=== PATIENT | female | born 1975 | race Caucasian/White ===

== ENCOUNTER → 2016-07-31 | Outpatient (REF) | payer BC ==
[~2016-07-31] MED LIST: /AUGM875TA; IBUP600T; LORTAB; SPIRONOLACTONE-HCTZ; VARE1TA
[2016-07-31 19:21] LABS: ALBUMIN 3.6 GM/DL (3.2-5.2); ALBUMIN/GLOBULIN RATIO 1.09 (1.00-1.93); ALKALINE PHOSPHATASE 85 U/L (45-117); ALT/SGPT 28 U/L (12-78); ANION GAP 11 MEQ/L (8-16); AST/SGOT 12 U/L (15-37); BILIRUBIN,TOTAL 0.2 MG/DL (0.2-1.0); BLOOD UREA NITROGEN 18 MG/DL (7-18); CALCIUM LEVEL 8.5 MG/DL (8.5-10.1); CARBON DIOXIDE LEVEL 24 MEQ/L (21-32); CHLORIDE LEVEL 105 MEQ/L (98-107); CREATININE FOR GFR 0.83 MG/DL (0.55-1.02); FREE T4 1.11 NG/DL (0.76-1.46); GLOMERULAR FILTRATION RATE > 60.0 (>58); GLUCOSE, FASTING 160 MG/DL (70-105); MAGNESIUM LEVEL 1.7 MG/DL (1.8-2.4); POTASSIUM SERUM 3.5 MEQ/L (3.5-5.1); SODIUM LEVEL 140 MEQ/L (136-145); TOTAL PROTEIN 6.9 GM/DL (6.4-8.2)
== END ==
LOC: M LABDRAW1 17:04
PROVIDERS: ATTEND Family Medicine
DX: E04.0 Nontoxic diffuse goiter (principal); R79.9 Abnormal finding of blood chemistry, unspecified; Z79.899 Other long term (current) drug therapy

== ENCOUNTER 2016-08-29 15:40 | Emergency (ER) | payer BC ==
[2016-08-29] MEDS ORDERED: METOCLOPRAMIDE INJ 10MG/2ML VIAL (J2765) As Ordered ONE (17:31)
[2016-08-29] MEDS ORDERED: diphenhydrAMINE INJ 50MG/ML VIAL (J1200) As Ordered ONE (17:31)
[2016-08-29] MEDS ORDERED: KETOROLAC 30 MG/ML VIAL (J1885) As Ordered ONE (17:32)
--- NOTE | 2016-08-29 19:12 | EDDOCDS ---
Nurse's Notes [facility] Name: Treva Hunter Age: 41 yrs Sex: Female : 1975 Arrival Date: 08/29/2016 Time: 15:40 Bed I4 / M4 Private MD: Curtis Hummel Diagnosis: Migraine Presentation: 08/29 15:55 Presenting complaint: Patient states: worst migraine of my life. Started this morning hs1 and gradually getting worse. This patient has no additional risk factors. Adult Sepsis Screening: The patient does not have new or worsening altered mentation. Patient's respiratory rate is less than 22. Systolic blood pressure is greater than 100. Patient has a qSOFA score of 0- Negative Sepsis Screen. Suicide/Homicide risk assessment- the patient denies having any suicidal and/or homicidal ideations and does not present with any other emotional, behavioral or mental health complaints. Status: Patient is not a hotel service manager or dependent. Transition of care: patient was not received from another setting of care. 15:55 Acuity: REMI Level 3 hs1 15:55 Method Of Arrival: Walkin/Carried/Asstd hs1 Triage Assessment: 15:59 Headache History: This headache is more severe than any previous headaches the patient hs1 has experienced. General: Appears uncomfortable, Behavior is appropriate for age, cooperative. Pain: Pain currently is 10 out of 10 on a pain scale. Pain began gradually Also complains of nausea, photophobia, shortness of breath. HIV screening NA for this visit Offered previously. Neurological: Level of Consciousness is awake, alert, obeys commands. Respiratory: No deficits noted. Derm: No deficits noted. Historical: - Allergies: Egg yolk; Latex; - Home Meds: 1. spironolacton-hydrochlorothiaz 25-25 mg Oral tab 1 tab once daily (Last dose: 08/28/2016) 2. torsemide 10 mg oral tab 1 tab twice a day (Last dose: 08/28/2016) 3. Contrave 8-90 mg oral TbER 2 tabs 2 times per day 4. Magnesium Oxide Oral 5. potassium chloride 10 mEq oral TbER 1 tab 3 times per day 6. Xanax 0.25 mg Oral tab 2 tabs as needed (Last dose: 08/29/2016 11:30) - PMHx: Polycystic Ovary Disease; low k; Migraines; - PSHx: Cholecystectomy; ; - Social history: Smoking status: Patient states former smoker of tobacco. No barriers to communication noted, The patient speaks fluent Nigerian, Speaks appropriately for age. - Family history: Not pertinent. - : The pt / caregiver states he / she is not on anticoagulants. Home medication list is obtained from the patient. - Exposure Risk Screening:: None identified. Screenin:29 Screening information is obtained from the patient. Fall risk: No risks identified. ck1 Assistance ADL's: requires no assistance with activities of daily living. Abuse/DV Screen: The patient / caregiver reports he/she is: not in a situation that causes fear, pain or injury. Nutritional screening: No deficits noted. Advance Directives: Currently, there is no health care proxy. home support is adequate. Assessment: 17:30 General: Appears uncomfortable, Behavior is appropriate for age, cooperative. Pain: ck1 Location: head Pain currently is 10 out of 10 on a pain scale. Neurological: Level of Consciousness is awake, alert, obeys commands, Oriented to person, place, time, Reports headache photophobia. Respiratory: Respiratory effort is unlabored, Respiratory pattern is regular, symmetrical. GI: Reports nausea. Derm: Skin is pink, warm & dry. 18:27 General: Appears in no apparent distress, comfortable, Behavior is appropriate for age, ck1 cooperative. Pain: Location: head Pain currently is 6 out of 10 on a pain scale. Neurological: Level of Consciousness is lethargic, Oriented to person, place, time. Respiratory: Respiratory effort is unlabored, Respiratory pattern is regular, symmetrical. GI: Denies nausea, vomiting. Derm: Skin is pink, warm & dry. 19:09 General: Appears in no apparent distress, comfortable, Behavior is cooperative. Pain: mlc Denies pain. Neurological: Level of Consciousness is awake, alert, Oriented to person, place, time. Respiratory: Airway is patent Respiratory effort is even, unlabored, Respiratory pattern is regular. Derm: Skin is pink, warm & dry. Vital Signs: 15:42 BP 165 / 99; Pulse 89; Resp 20 S; Temp 97.0(O); Pulse Ox 100% on R/A; Weight 115.67 kg gr2 (R); Height 5 ft. 11 in. (180.34 cm) (R); Pain 9/10; 17:02 BP 185 / 90 RA Standing (auto/lg); dem1 19:09 BP 139 / 70; Pulse 70; Resp 16; Temp 97.6; Pulse Ox 97% on R/A; Pain 0/10; mlc 15:42 Body Mass Index 35.56 (115.67 kg, 180.34 cm) gr2 Vitals: 15:42 Log In Time: August 29, 2016 at 15:42. gr2 ED Course: 15:42 Patient visited by Sylvia Burrell. gr2 15:42 Curtis Hummel is Private Physician. gr2 15:42 Patient moved to Waiting gr2 15:44 Patient visited by Sylvia Burrell. gr2 15:44 Patient moved to Pre RCE gr2 15:55 Triage Initiated hs1 17:00 Patient visited by Genoveva Self RN. mk4 17:00 Patient moved to Triage 1 mk4 17:02 Patient visited by Rufina Pate. dem1 17:19 [facility] ke 17:20 Patient visited by Kignston Mandel FNP. ke 17:20 Patient visited by Kingston Mandel FNP. ke 17:24 Patient moved to I4 / M4 dem1 17:29 The patient / caregiver is instructed regarding the plan of care and ED course. ck1 17:29 Inserted saline lock: 20 gauge in right antecubital area and blood collected. The ck1 patient tolerated the procedure well. 17:52 Patient visited by Laura Ruiz RN. ck1 18:08 Pt greeted and oriented to ED. Patient advised of names of staff involved in care, jam1 location of call knapp, wait times and NPO status. Patient has correct armband on for positive identification. Placed in gown. Bed in low position. Call light in reach. Side rails up X 1. Door closed. 18:27 Patient visited by Laura Ruiz,RUPA. ck1 18:28 No procedures done that require assistance. ck1 18:57 Patient visited by Laura Ruiz,RUPA. ck1 19:00 Curtis Hummel is Referral Physician. ke 19:00 Toni Nguyen is Referral Physician. ke 19:02 [facility] Payment Agreement was scanned into [employer] and attached to record. zo 19:09 Discontinued IV lock intact, bleeding controlled, pressure dressing applied, No mlc redness/swelling at site. Administered Medications: 17:39 Drug: NS 0.9% 1000 ml [sodium chloride 0.9 % intravenous solution] Route: IV; Rate: ck1 bolus; Site: right antecubital; 17:39 Drug: ketorolac 30 mg [ketorolac 30 mg/mL (1 mL) injection solution (1 mL)] Route: IVP; ck1 Site: right antecubital; 17:39 Drug: diphenhydrAMINE 50 mg [diphenhydramine 50 mg/mL injection solution (1 mL)] Route: ck1 IVP; Site: right antecubital; 17:39 Drug: Metoclopramide 10 mg [metoclopramide 5 mg/mL injection solution] Route: IV; Rate: ck1 40 mg/hr; Infused Over: 15 mins; Site: right antecubital; Order Results: There are currently no results for this order. Outcome: 19:00 Discharge ordered by Provider. ke 19:09 Discharge Assessment: Patient awake, alert and oriented x 3. No cognitive and/or mlc functional deficits noted. Patient verbalized understanding of disposition instructions. patient administered narcotics - no. The following High Risk Discharge criteria are identified: None. Discharged to home ambulatory. Condition: good Condition: stable. Discharge instructions given to patient, Instructed on discharge instructions, follow up and referral plans. medication usage, Demonstrated understanding of instructions, medications, Pt was receptive of discharge instructions/ teaching. Prescriptions given X 1. No special radiology studies were completed. Property sent home with patient. 19:11 Patient left the ED. mlc Signatures: Salina Rodriguez, BRAND AMBASSADOR BRAND AMBASSADOR jam1 Kingston Mandel, IT INVESTMENT/PORTFOLIO MANAGER IT INVESTMENT/PORTFOLIO MANAGER Laura JonesRN RN ck1 Valencia Wang Hannah RN RN hs1 Rufina Pate1 Sylvia Burrell gr2 Genoveva Self RN RN mk4 Izabel Tanner,RN RN mlc MTDD
--- NOTE | 2016-08-29 19:12 | EDDOCDS ---
Physician Documentation [facility] Name: Treva Hunter Age: 41 yrs Sex: Female : 1975 Arrival Date: 08/29/2016 Time: 15:40 Bed I4 / M4 Private MD: Curtis Hummel Disposition: 08/29/16 19:00 Discharged to Home/Self Care. Impression: Migraine. - Condition is Stable. - Discharge Instructions: Migraine Headache. - Prescriptions for Reglan 10 mg Oral Tablet - take 1 tablet by ORAL route every 6 hours take 30 minutes before meals and at bedtime; 20 tablet. - Medication Reconciliation, Local Pharmacy Hours form. - Follow up: Curtis Hummel; When: 4 - 5 days; Reason: Recheck today's complaints, Continuance of care. Follow up: Toni Nguyen; When: Call to arrange an appointment; Reason: Continuance of care. - Problem is an acute exacerbation. - Symptoms are unchanged. Historical: - Allergies: Egg yolk; Latex; - Home Meds: 1. spironolacton-hydrochlorothiaz 25-25 mg Oral tab 1 tab once daily (Last dose: 08/28/2016) 2. torsemide 10 mg oral tab 1 tab twice a day (Last dose: 08/28/2016) 3. Contrave 8-90 mg oral TbER 2 tabs 2 times per day 4. Magnesium Oxide Oral 5. potassium chloride 10 mEq oral TbER 1 tab 3 times per day 6. Xanax 0.25 mg Oral tab 2 tabs as needed (Last dose: 08/29/2016 11:30) - PMHx: Polycystic Ovary Disease; low k; Migraines; - PSHx: Cholecystectomy; ; - Social history: Smoking status: Patient states former smoker of tobacco. No barriers to communication noted, The patient speaks fluent Greenlandic, Speaks appropriately for age. - Family history: Not pertinent. - : The pt / caregiver states he / she is not on anticoagulants. Home medication list is obtained from the patient. - Exposure Risk Screening:: None identified. Vital Signs: 08/29 15:42 BP 165 / 99; Pulse 89; Resp 20 S; Temp 97.0(O); Pulse Ox 100% on R/A; Weight 115.67 kg gr2 / 255.01 lbs (R); Height 5 ft. 11 in. (180.34 cm) (R); Pain 9/10; 17:02 BP 185 / 90 RA Standing (auto/lg); dem1 19:09 BP 139 / 70; Pulse 70; Resp 16; Temp 97.6; Pulse Ox 97% on R/A; Pain 0/10; mlc 15:42 Body Mass Index 35.56 (115.67 kg, 180.34 cm) gr2 MDM: 17:23 IV Saline Lock ordered. ke 17:23 NS 0.9% 1000 ml IV at bolus once ordered. ke 17:23 ketorolac 30 mg IVP once ordered. ke 17:23 diphenhydrAMINE 50 mg IVP once ordered. ke 17:23 Metoclopramide 10 mg IV at 40 mg/hr once over 15 mins ordered. ke 18:19 Financial registration complete. zo 19:02 [facility] Payment Agreement was scanned into [employer] and attached to record. zo Administered Medications: 17:39 Drug: NS 0.9% 1000 ml [sodium chloride 0.9 % intravenous solution] Route: IV; Rate: ck1 bolus; Site: right antecubital; 17:39 Drug: ketorolac 30 mg [ketorolac 30 mg/mL (1 mL) injection solution (1 mL)] Route: IVP; ck1 Site: right antecubital; 17:39 Drug: diphenhydrAMINE 50 mg [diphenhydramine 50 mg/mL injection solution (1 mL)] Route: ck1 IVP; Site: right antecubital; 17:39 Drug: Metoclopramide 10 mg [metoclopramide 5 mg/mL injection solution] Route: IV; Rate: ck1 40 mg/hr; Infused Over: 15 mins; Site: right antecubital; Signatures: Kingston Mandel, MICROSOFT ACCESS DEVELOPER MICROSOFT ACCESS DEVELOPER Laura Jones RN RN ck1 Valencia Wang Hannah, RN RN hs1 Izabel Tanner,RUPA RN mlc The chart was reviewed and I authenticate all verbal orders and agree with the evaluation and treatment provided.Attachments: 19:02 [facility] Payment Agreement zo MTDD
--- NOTE | 2016-08-31 20:12 | EDDOCDS ---
Physician Documentation [facility] Name: Treva Hunter Age: 41 yrs Sex: Female : 1975 Arrival Date: 08/29/2016 Time: 15:40 Bed I4 / M4 Private MD: Curtis Hummel Disposition: 08/29/16 19:00 Discharged to Home/Self Care. Impression: Migraine. - Condition is Stable. - Discharge Instructions: Migraine Headache. - Prescriptions for Reglan 10 mg Oral Tablet - take 1 tablet by ORAL route every 6 hours take 30 minutes before meals and at bedtime; 20 tablet. - Medication Reconciliation, Local Pharmacy Hours form. - Follow up: Curtis Hummel; When: 4 - 5 days; Reason: Recheck today's complaints, Continuance of care. Follow up: Toni Nguyen; When: Call to arrange an appointment; Reason: Continuance of care. - Problem is an acute exacerbation. - Symptoms are unchanged. Historical: - Allergies: Egg yolk; Latex; - Home Meds: 1. spironolacton-hydrochlorothiaz 25-25 mg Oral tab 1 tab once daily (Last dose: 08/28/2016) 2. torsemide 10 mg oral tab 1 tab twice a day (Last dose: 08/28/2016) 3. Contrave 8-90 mg oral TbER 2 tabs 2 times per day 4. Magnesium Oxide Oral 5. potassium chloride 10 mEq oral TbER 1 tab 3 times per day 6. Xanax 0.25 mg Oral tab 2 tabs as needed (Last dose: 08/29/2016 11:30) - PMHx: Polycystic Ovary Disease; low k; Migraines; - PSHx: Cholecystectomy; ; - Social history: Smoking status: Patient states former smoker of tobacco. No barriers to communication noted, The patient speaks fluent Lao, Speaks appropriately for age. - Family history: Not pertinent. - : The pt / caregiver states he / she is not on anticoagulants. Home medication list is obtained from the patient. - Exposure Risk Screening:: None identified. Vital Signs: 08/29 15:42 BP 165 / 99; Pulse 89; Resp 20 S; Temp 97.0(O); Pulse Ox 100% on R/A; Weight 115.67 kg gr2 / 255.01 lbs (R); Height 5 ft. 11 in. (180.34 cm) (R); Pain 9/10; 17:02 BP 185 / 90 RA Standing (auto/lg); dem1 19:09 BP 139 / 70; Pulse 70; Resp 16; Temp 97.6; Pulse Ox 97% on R/A; Pain 0/10; mlc 15:42 Body Mass Index 35.56 (115.67 kg, 180.34 cm) gr2 MDM: 17:23 IV Saline Lock ordered. ke 17:23 NS 0.9% 1000 ml IV at bolus once ordered. ke 17:23 ketorolac 30 mg IVP once ordered. ke 17:23 diphenhydrAMINE 50 mg IVP once ordered. ke 17:23 Metoclopramide 10 mg IV at 40 mg/hr once over 15 mins ordered. ke 18:19 Financial registration complete. zo 19:02 [facility] Payment Agreement was scanned into [employer] and attached to record. zo 08/30 11:30 T-Sheet-- Draft Copy was scanned into [employer] and attached to record. gb Administered Medications: 08/29 17:39 Drug: NS 0.9% 1000 ml [sodium chloride 0.9 % intravenous solution] Route: IV; Rate: ck1 bolus; Site: right antecubital; 17:39 Drug: ketorolac 30 mg [ketorolac 30 mg/mL (1 mL) injection solution (1 mL)] Route: IVP; ck1 Site: right antecubital; 17:39 Drug: diphenhydrAMINE 50 mg [diphenhydramine 50 mg/mL injection solution (1 mL)] Route: ck1 IVP; Site: right antecubital; 17:39 Drug: Metoclopramide 10 mg [metoclopramide 5 mg/mL injection solution] Route: IV; Rate: ck1 40 mg/hr; Infused Over: 15 mins; Site: right antecubital; Signatures: Shannon Stokes, Kingston Ribeiro, EDGER MACHINE SETTER EDGER MACHINE SETTER Laura JonesRN RN ck1 Valencia Wang Hannah, RN RN hs1 Izabel Tanner RN RN mlc The chart was reviewed and I authenticate all verbal orders and agree with the evaluation and treatment provided.Attachments: 19:02 [facility] Payment Agreement zo 08/30 11:30 T-Sheet-- Draft Copy gb Chart Complete MTDD
--- NOTE | 2016-08-31 20:12 | EDDOCDS ---
Physician Documentation [facility] Name: Treva Hunter Age: 41 yrs Sex: Female : 1975 Arrival Date: 08/29/2016 Time: 15:40 Bed I4 / M4 Private MD: Curtis Hummel Disposition: 08/29/16 19:00 Discharged to Home/Self Care. Impression: Migraine. - Condition is Stable. - Discharge Instructions: Migraine Headache. - Prescriptions for Reglan 10 mg Oral Tablet - take 1 tablet by ORAL route every 6 hours take 30 minutes before meals and at bedtime; 20 tablet. - Medication Reconciliation, Local Pharmacy Hours form. - Follow up: Curtis Hummel; When: 4 - 5 days; Reason: Recheck today's complaints, Continuance of care. Follow up: Toni Nguyen; When: Call to arrange an appointment; Reason: Continuance of care. - Problem is an acute exacerbation. - Symptoms are unchanged. Historical: - Allergies: Egg yolk; Latex; - Home Meds: 1. spironolacton-hydrochlorothiaz 25-25 mg Oral tab 1 tab once daily (Last dose: 08/28/2016) 2. torsemide 10 mg oral tab 1 tab twice a day (Last dose: 08/28/2016) 3. Contrave 8-90 mg oral TbER 2 tabs 2 times per day 4. Magnesium Oxide Oral 5. potassium chloride 10 mEq oral TbER 1 tab 3 times per day 6. Xanax 0.25 mg Oral tab 2 tabs as needed (Last dose: 08/29/2016 11:30) - PMHx: Polycystic Ovary Disease; low k; Migraines; - PSHx: Cholecystectomy; ; - Social history: Smoking status: Patient states former smoker of tobacco. No barriers to communication noted, The patient speaks fluent Telugu, Speaks appropriately for age. - Family history: Not pertinent. - : The pt / caregiver states he / she is not on anticoagulants. Home medication list is obtained from the patient. - Exposure Risk Screening:: None identified. Vital Signs: 08/29 15:42 BP 165 / 99; Pulse 89; Resp 20 S; Temp 97.0(O); Pulse Ox 100% on R/A; Weight 115.67 kg gr2 / 255.01 lbs (R); Height 5 ft. 11 in. (180.34 cm) (R); Pain 9/10; 17:02 BP 185 / 90 RA Standing (auto/lg); dem1 19:09 BP 139 / 70; Pulse 70; Resp 16; Temp 97.6; Pulse Ox 97% on R/A; Pain 0/10; mlc 15:42 Body Mass Index 35.56 (115.67 kg, 180.34 cm) gr2 MDM: 17:23 IV Saline Lock ordered. ke 17:23 NS 0.9% 1000 ml IV at bolus once ordered. ke 17:23 ketorolac 30 mg IVP once ordered. ke 17:23 diphenhydrAMINE 50 mg IVP once ordered. ke 17:23 Metoclopramide 10 mg IV at 40 mg/hr once over 15 mins ordered. ke 18:19 Financial registration complete. zo 19:02 [facility] Payment Agreement was scanned into [employer] and attached to record. zo 08/30 11:30 T-Sheet-- Draft Copy was scanned into [employer] and attached to record. gb Administered Medications: 08/29 17:39 Drug: NS 0.9% 1000 ml [sodium chloride 0.9 % intravenous solution] Route: IV; Rate: ck1 bolus; Site: right antecubital; 17:39 Drug: ketorolac 30 mg [ketorolac 30 mg/mL (1 mL) injection solution (1 mL)] Route: IVP; ck1 Site: right antecubital; 17:39 Drug: diphenhydrAMINE 50 mg [diphenhydramine 50 mg/mL injection solution (1 mL)] Route: ck1 IVP; Site: right antecubital; 17:39 Drug: Metoclopramide 10 mg [metoclopramide 5 mg/mL injection solution] Route: IV; Rate: ck1 40 mg/hr; Infused Over: 15 mins; Site: right antecubital; Signatures: Shannon Stokes, Kingston Ribeiro, DRY END OPERATOR DRY END OPERATOR Laura JonesRN RN ck1 Valencia Wang Hannah, RN RN hs1 Izabel Tanner RN RN mlc The chart was reviewed and I authenticate all verbal orders and agree with the evaluation and treatment provided.Attachments: 19:02 [facility] [place] Agreement zo 08/30 11:30 T-Sheet-- Draft Copy gb Chart Complete MTDD
--- NOTE | 2016-08-31 20:12 | EDDOCDS ---
Nurse's Notes [facility] Name: Treva Hunter Age: 41 yrs Sex: Female : 1975 Arrival Date: 08/29/2016 Time: 15:40 Bed I4 / M4 Private MD: Curtis Hummel Diagnosis: Migraine Presentation: 08/29 15:55 Presenting complaint: Patient states: worst migraine of my life. Started this morning hs1 and gradually getting worse. This patient has no additional risk factors. Adult Sepsis Screening: The patient does not have new or worsening altered mentation. Patient's respiratory rate is less than 22. Systolic blood pressure is greater than 100. Patient has a qSOFA score of 0- Negative Sepsis Screen. Suicide/Homicide risk assessment- the patient denies having any suicidal and/or homicidal ideations and does not present with any other emotional, behavioral or mental health complaints. 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 Transition of care: patient was not received from another setting of care. 15:55 Acuity: REMI Level 3 hs1 15:55 Method Of Arrival: Walkin/Carried/Asstd hs1 Triage Assessment: 15:59 Headache History: This headache is more severe than any previous headaches the patient hs1 has experienced. General: Appears uncomfortable, Behavior is appropriate for age, cooperative. Pain: Pain currently is 10 out of 10 on a pain scale. Pain began gradually Also complains of nausea, photophobia, shortness of breath. HIV screening NA for this visit Offered previously. Neurological: Level of Consciousness is awake, alert, obeys commands. Respiratory: No deficits noted. Derm: No deficits noted. Historical: - Allergies: Egg yolk; Latex; - Home Meds: 1. spironolacton-hydrochlorothiaz 25-25 mg Oral tab 1 tab once daily (Last dose: 08/28/2016) 2. torsemide 10 mg oral tab 1 tab twice a day (Last dose: 08/28/2016) 3. Contrave 8-90 mg oral TbER 2 tabs 2 times per day 4. Magnesium Oxide Oral 5. potassium chloride 10 mEq oral TbER 1 tab 3 times per day 6. Xanax 0.25 mg Oral tab 2 tabs as needed (Last dose: 08/29/2016 11:30) - PMHx: Polycystic Ovary Disease; low k; Migraines; - PSHx: Cholecystectomy; ; - Social history: Smoking status: Patient states former smoker of tobacco. No barriers to communication noted, The patient speaks fluent Marshallese, Speaks appropriately for age. - Family history: Not pertinent. - : The pt / caregiver states he / she is not on anticoagulants. Home medication list is obtained from the patient. - Exposure Risk Screening:: None identified. Screenin:29 Screening information is obtained from the patient. Fall risk: No risks identified. ck1 Assistance ADL's: requires no assistance with activities of daily living. Abuse/DV Screen: The patient / caregiver reports he/she is: not in a situation that causes fear, pain or injury. Nutritional screening: No deficits noted. Advance Directives: Currently, there is no health care proxy. home support is adequate. Assessment: 17:30 General: Appears uncomfortable, Behavior is appropriate for age, cooperative. Pain: ck1 Location: head Pain currently is 10 out of 10 on a pain scale. Neurological: Level of Consciousness is awake, alert, obeys commands, Oriented to person, place, time, Reports headache photophobia. Respiratory: Respiratory effort is unlabored, Respiratory pattern is regular, symmetrical. GI: Reports nausea. Derm: Skin is pink, warm & dry. 18:27 General: Appears in no apparent distress, comfortable, Behavior is appropriate for age, ck1 cooperative. Pain: Location: head Pain currently is 6 out of 10 on a pain scale. Neurological: Level of Consciousness is lethargic, Oriented to person, place, time. Respiratory: Respiratory effort is unlabored, Respiratory pattern is regular, symmetrical. GI: Denies nausea, vomiting. Derm: Skin is pink, warm & dry. 19:09 General: Appears in no apparent distress, comfortable, Behavior is cooperative. Pain: mlc Denies pain. Neurological: Level of Consciousness is awake, alert, Oriented to person, place, time. Respiratory: Airway is patent Respiratory effort is even, unlabored, Respiratory pattern is regular. Derm: Skin is pink, warm & dry. Vital Signs: 15:42 BP 165 / 99; Pulse 89; Resp 20 S; Temp 97.0(O); Pulse Ox 100% on R/A; Weight 115.67 kg gr2 (R); Height 5 ft. 11 in. (180.34 cm) (R); Pain 9/10; 17:02 BP 185 / 90 RA Standing (auto/lg); dem1 19:09 BP 139 / 70; Pulse 70; Resp 16; Temp 97.6; Pulse Ox 97% on R/A; Pain 0/10; mlc 15:42 Body Mass Index 35.56 (115.67 kg, 180.34 cm) gr2 Vitals: 15:42 Log In Time: August 29, 2016 at 15:42. gr2 ED Course: 15:42 Patient visited by Sylvia Burrell. gr2 15:42 Curtis Hummel is Private Physician. gr2 15:42 Patient moved to Waiting gr2 15:44 Patient visited by Sylvia Burrell. gr2 15:44 Patient moved to Pre RCE gr2 15:55 Triage Initiated hs1 17:00 Patient visited by Genoveva Self RN. mk4 17:00 Patient moved to Triage 1 mk4 17:02 Patient visited by Rufina Pate. dem1 17:19 [facility] ke 17:20 Patient visited by Kingston Mandel FNP. ke 17:20 Patient visited by Kingston Mandel FNP. ke 17:24 Patient moved to I4 / M4 dem1 17:29 The patient / caregiver is instructed regarding the plan of care and ED course. ck1 17:29 Inserted saline lock: 20 gauge in right antecubital area and blood collected. The ck1 patient tolerated the procedure well. 17:52 Patient visited by Laura Ruiz RN. ck1 18:08 Pt greeted and oriented to ED. Patient advised of names of staff involved in care, jam1 location of call knapp, wait times and NPO status. Patient has correct armband on for positive identification. Placed in gown. Bed in low position. Call light in reach. Side rails up X 1. Door closed. 18:27 Patient visited by Laura uRiz,RUPA. ck1 18:28 No procedures done that require assistance. ck1 18:57 Patient visited by Laura Ruiz,RUPA. ck1 19:00 Curtis Hummel is Referral Physician. ke 19:00 Toni Nguyen is Referral Physician. ke 19:02 [facility] Payment Agreement was scanned into [employer] and attached to record. ulysses 19:09 Discontinued IV lock intact, bleeding controlled, pressure dressing applied, No mlc redness/swelling at site. 08/30 11:30 T-Sheet-- Draft Copy was scanned into [employer] and attached to record. gb Administered Medications: 08/29 17:39 Drug: NS 0.9% 1000 ml [sodium chloride 0.9 % intravenous solution] Route: IV; Rate: ck1 bolus; Site: right antecubital; 17:39 Drug: ketorolac 30 mg [ketorolac 30 mg/mL (1 mL) injection solution (1 mL)] Route: IVP; ck1 Site: right antecubital; 17:39 Drug: diphenhydrAMINE 50 mg [diphenhydramine 50 mg/mL injection solution (1 mL)] Route: ck1 IVP; Site: right antecubital; 17:39 Drug: Metoclopramide 10 mg [metoclopramide 5 mg/mL injection solution] Route: IV; Rate: ck1 40 mg/hr; Infused Over: 15 mins; Site: right antecubital; Order Results: There are currently no results for this order. Outcome: 19:00 Discharge ordered by Provider. jackson 19:09 Discharge Assessment: Patient awake, alert and oriented x 3. No cognitive and/or mlc functional deficits noted. Patient verbalized understanding of disposition instructions. patient administered narcotics - no. The following High Risk Discharge criteria are identified: None. Discharged to home ambulatory. Condition: good Condition: stable. Discharge instructions given to patient, Instructed on discharge instructions, follow up and referral plans. medication usage, Demonstrated understanding of instructions, medications, Pt was receptive of discharge instructions/ teaching. Prescriptions given X 1. No special radiology studies were completed. Property sent home with patient. 19:11 Patient left the ED. mlc Signatures: Salina Rodriguez, VISITOR SERVICES INFORMATION ASSISTANT VISITOR SERVICES INFORMATION ASSISTANT jam1 Shannon Stokes, Reg Reg Kingston Dougherty, MANAGER OF PMO MANAGER OF PMO Laura JonesRN RN ck1 Valencia Wang Hannah, RN RN hs1 Rufina Pate1 Sylvia Burrell gr2 Genoveva Self RN RN mk4 Izabel Tanner RN RN mlc Chart Complete MTDD
== END 2016-08-29 19:11 | disposition home or self-care (01) ==
LOC: M ED 15:40
DX: G43.909 Migraine, unspecified, not intractable, without status migrainosus (principal); E28.2 Polycystic ovarian syndrome; E87.6 Hypokalemia; Z79.899 Other long term (current) drug therapy; Z91.012 Allergy to eggs; Z91.040 Latex allergy status; Z87.891 Personal history of nicotine dependence
CPT/HCPCS: 36415; 96374; 96375; 99284; J1200; J1885; J2765

== ENCOUNTER 2016-11-14 07:30 | Emergency (ER) | payer BC ==
[~2016-11-14] VITALS: Ht 177.8 cm; Wt 117.9 kg
[~2016-11-14 07:30] MED LIST changes: -ALDA25TA PO; -CEFD1CAP8 PO; -CIPRODEX AD; -CONT1TAB PO; -IBUP800T23 PO; -METH4TAB6 PO; -TORS10TA3 PO; -ZOFR4TAB3 PO
[2016-11-14] MEDS ORDERED: TORS10TA3 PO (07:51)
[2016-11-14] MEDS ORDERED: METH4TAB6 PO (07:51)
[2016-11-14] MEDS ORDERED: CIPRODEX AD (07:51)
[2016-11-14] MEDS ORDERED: CONT1TAB PO (07:51)
[2016-11-14] MEDS ORDERED: ALDA25TA PO (07:51)
[2016-11-14] MEDS ORDERED: cefTRIAXone SOD 1 GM VIAL (J0696) IM ONE (08:15)
[2016-11-14] MEDS ORDERED: traMADol 50 MG TAB PO ONE (08:15)
[2016-11-14] MEDS ORDERED: LIDOCAINE W/EPINEPHRINE 1% 20ML VIAL As Ordered ONE (08:20)
[2016-11-14] MEDS ORDERED: LIDOCAINE 1% MDV 20ML VIAL As Ordered ONE (08:21)
[2016-11-14] MEDS ORDERED: IBUP800T23 PO (08:57)
[2016-11-14] MEDS ORDERED: CEFD1CAP8 PO (08:57)
[2016-11-14] MEDS ORDERED: ZOFR4TAB3 PO (08:57)
[2016-11-14 09:02] VITALS: BP 163/99
== END 2016-11-14 09:06 | disposition home or self-care (01) ==
LOC: M ED 08:23
DX: H66.41 Suppurative otitis media, unspecified, right ear (principal); R19.7 Diarrhea, unspecified; I10 Essential (primary) hypertension; G43.909 Migraine, unspecified, not intractable, without status migrainosus; F41.9 Anxiety disorder, unspecified; F33.9 Major depressive disorder, recurrent, unspecified; Z79.899 Other long term (current) drug therapy; Z91.012 Allergy to eggs; Z91.040 Latex allergy status; Z87.891 Personal history of nicotine dependence
CPT/HCPCS: 96372; 99282; J0696

== ENCOUNTER → 2016-11-14 | Outpatient (REF) | payer BC ==
[~2016-11-14] MED LIST changes: +ALDA25TA PO; +CEFD1CAP8 PO; +CIPRODEX AD; +CONT1TAB PO; +IBUP800T23 PO; +METH4TAB6 PO; +TORS10TA3 PO; +ZOFR4TAB3 PO
== END ==
LOC: M LAB REF 12:03
PROVIDERS: ATTEND Physician Assistant Medical
DX: R19.7 Diarrhea, unspecified (principal)

== ENCOUNTER 2017-05-07 07:58 | Emergency (ER) | payer BC ==
[~2017-05-07] VITALS: Ht 177.8 cm; Wt 125.9 kg
[~2017-05-07 07:58] MED LIST changes: +ALDA25TA PO; +CEFD1CAP8 PO; +CIPRODEX AD; +CONT1TAB PO; +IBUP1TAB7 PO; +METH4TAB28 PO; +TORS10TA3 PO; +ZOFR4TAB3 PO
[2017-05-07] MEDS ORDERED: POTA1TAB23 PO (08:08)
[2017-05-07] MEDS ORDERED: VITA1CAP40 PO (08:08)
[2017-05-07] MEDS ORDERED: MAGN400T5 PO (08:08)
[2017-05-07 09:21] LABS: BASO # 0.1 10^3/uL (0.0-0.2); BASO % 0.4 % (0.0-1.0); EOS # 0.1 10^3/uL (0.0-0.50); EOS % 0.8 % (0.0-3.0); LYMPH # 1.9 10^3/uL (1.5-4.5); LYMPH % 14.2 % (24.0-44.0); MEAN CORPUSCULAR HEMOGLOBIN 30.6 pg (27.0-33.0); MEAN CORPUSCULAR HGB CONC 35.3 g/dl (32.0-36.5); MEAN CORPUSCULAR VOLUME 86.8 fl (80.0-96.0); MONO % 7.1 % (0.0-5.0); NEUTROPHILS # 10.3 10^3/uL (1.8-7.7); NEUTROPHILS % 76.5 % (36.0-66.0); PLATELET COUNT, AUTOMATED 311 10^3/uL (150-450); WHITE BLOOD COUNT 13.5 10^3/uL (4.0-10.0)
--- NOTE | 2017-05-07 09:42 | ECGEPIP ---
Stationary ECG Study [facility] - ED Test Date: 2017-05-07 Pat Name: ERIN MARIN Department: Room: - Gender: F Blueberry Grower: AF : 1975 Requested By: Reymundo Cooper Order Number: [id number] Reading MD: Reymundo Reynolds Measurements Intervals [place] Rate: 104 P: 45 TN: 159 QRS: -28 QRSD: 94 T: 76 QT: 353 QTc: 465 Interpretive Statements SINUS TACHYCARDIA POOR R WAVE PROGRESSION SIMILAR TO 07/29/15 Electronically Signed On 05-07-2017 9:42:39 EDT by Reymundo Reynolds
[2017-05-07 09:50] LABS: ANION GAP 12 MEQ/L (8-16); BLOOD UREA NITROGEN 23 MG/DL (7-18); CALCIUM LEVEL 9.1 MG/DL (8.5-10.1); CARBON DIOXIDE LEVEL 29 MEQ/L (21-32); CHLORIDE LEVEL 96 MEQ/L (98-107); CREATININE FOR GFR 0.93 MG/DL (0.55-1.02); GLOMERULAR FILTRATION RATE > 60.0 (>58); GLUCOSE, FASTING 146 MG/DL (70-105); POTASSIUM SERUM 3.3 MEQ/L (3.5-5.1); SODIUM LEVEL 137 MEQ/L (136-145)
[2017-05-07] MEDS ORDERED: ZOFR4TAB3 PO (10:10)
[2017-05-07 10:28] VITALS: BP 145/94
[2017-05-07] MEDS ORDERED: POTASSIUM CHLORIDE 10 MEQ SR TABLET PO ONE (11:00)
== END 2017-05-07 10:30 | disposition home or self-care (01) ==
LOC: M ED 07:58
DX: E87.6 Hypokalemia (principal); I10 Essential (primary) hypertension; E66.9 Obesity, unspecified; Z79.899 Other long term (current) drug therapy; Z91.040 Latex allergy status; Z91.012 Allergy to eggs

== ENCOUNTER 2017-05-10 09:59 | Emergency (ER) | payer BC ==
[~2017-05-10] VITALS: Ht 177.8 cm; Wt 129.6 kg
[~2017-05-10 09:59] MED LIST changes: +MAGN400T5 PO; +POTA1TAB23 PO; +VITA1CAP40 PO
[2017-05-10] MEDS ORDERED: METOCLOPRAMIDE INJ 10MG/2ML VIAL (J2765) IV ONE (11:30)
[2017-05-10] MEDS ORDERED: NS 1,000 ML IV ONE (11:30)
[2017-05-10] MEDS ORDERED: KETOROLAC 30 MG/ML VIAL (J1885) IV ONE (11:30)
[2017-05-10] MEDS ORDERED: diphenhydrAMINE INJ 50MG/ML VIAL (J1200) IV ONE (11:30)
[2017-05-10 11:55] LABS: BASO # 0.1 10^3/uL (0.0-0.2); BASO % 0.5 % (0.0-1.0); EOS # 0.1 10^3/uL (0.0-0.50); EOS % 0.7 % (0.0-3.0); IMMATURE GRANULOCYTE % 1.6 % (0-0); LYMPH # 2.2 10^3/uL (1.5-4.5); LYMPH % 17.9 % (24.0-44.0); MEAN CORPUSCULAR HEMOGLOBIN 30.2 pg (27.0-33.0); MEAN CORPUSCULAR HGB CONC 33.9 g/dl (32.0-36.5); MEAN CORPUSCULAR VOLUME 89.2 fl (80.0-96.0); MONO # 0.8 10^3/uL (0.0-0.8); NEUTROPHILS # 8.7 10^3/uL (1.8-7.7); NEUTROPHILS % 72.3 % (36.0-66.0); PLATELET COUNT, AUTOMATED 261 10^3/uL (150-450); RED CELL DISTRIBUTION WIDTH 12.9 % (11.5-14.5)
[2017-05-10 12:21] LABS: ANION GAP 8 MEQ/L (8-16); BLOOD UREA NITROGEN 29 MG/DL (7-18); CALCIUM LEVEL 9.5 MG/DL (8.5-10.1); CARBON DIOXIDE LEVEL 27 MEQ/L (21-32); CHLORIDE LEVEL 103 MEQ/L (98-107); CREATININE FOR GFR 0.64 MG/DL (0.55-1.02); GLOMERULAR FILTRATION RATE > 60.0 (>58); GLUCOSE, FASTING 111 MG/DL (70-105); POTASSIUM SERUM 3.9 MEQ/L (3.5-5.1); SODIUM LEVEL 138 MEQ/L (136-145)
--- NOTE | 2017-05-10 12:40 | REP ---
RIGHT LOWER EXTREMITY DUPLEX VEINS: HISTORY: Calf pain. There are no filling defects in the deep venous system. The deep venous system is patent. IMPRESSION: There is no deep venous thrombosis. Signed by Charles Gongora MD 05/10/2017 01:29 P
[2017-05-10 14:08] VITALS: BP 146/81
[2017-05-10 14:19] LABS: VITAMIN B12 LEVEL 378 PG/ML (247-911)
== END 2017-05-10 14:04 | disposition home or self-care (01) ==
LOC: M ED 09:59
DX: G43.909 Migraine, unspecified, not intractable, without status migrainosus (principal); R73.9 Hyperglycemia, unspecified
CPT/HCPCS: 80048; 82607; 83036; 83735; 84443; 85025; 93971; 96361; 96374; 96375; 99283; J1200; J1885; J2765

== ENCOUNTER → 2017-06-11 | Outpatient (CLI) | payer BC | LOC: M LAB 18:07 | PROVIDERS: ATTEND Nurse Practitioner Family | DX: R82.90 Unspecified abnormal findings in urine (principal) ==

== ENCOUNTER → 2017-10-02 | Outpatient (CLI) | payer BC ==
[2017-10-02 06:52] LABS: BASO % 0.4 % (0.0-1.0); EOS # 0.2 10^3/uL (0.0-0.50); EOS % 2.5 % (0.0-3.0); HEMATOCRIT 42.8 % (36.0-47.0); HEMOGLOBIN 14.2 g/dl (12.0-16.0); IMMATURE GRANULOCYTE % 0.6 % (0-3.0); LYMPH # 1.8 10^3/uL (1.5-4.5); LYMPH % 24.8 % (24.0-44.0); MEAN CORPUSCULAR HEMOGLOBIN 29.3 pg (27.0-33.0); MEAN CORPUSCULAR HGB CONC 33.2 g/dl (32.0-36.5); MEAN CORPUSCULAR VOLUME 88.4 fl (80.0-96.0); MONO # 0.5 10^3/uL (0.0-0.8); MONO % 7.1 % (0.0-5.0); NEUTROPHILS # 4.6 10^3/uL (1.8-7.7); NEUTROPHILS % 64.6 % (36.0-66.0); PLATELET COUNT, AUTOMATED 246 10^3/uL (150-450); RED BLOOD COUNT 4.84 10^6/uL (4.00-5.40); RED CELL DISTRIBUTION WIDTH 13.6 % (11.5-14.5); WHITE BLOOD COUNT 7.1 10^3/uL (4.0-10.0)
[2017-10-02 07:08] LABS: ESTIMATED AVERAGE GLUCOSE 103 MG/DL (60-110); HEMOGLOBIN A1c 5.2 %
[2017-10-02 07:26] LABS: ALBUMIN 3.8 GM/DL (3.2-5.2); ALBUMIN/GLOBULIN RATIO 1.27 (1.00-1.93); ALKALINE PHOSPHATASE 66 U/L (45-117); ALT/SGPT 20 U/L (12-78); ANION GAP 6 MEQ/L (8-16); AST/SGOT 12 U/L (7-37); BILIRUBIN,TOTAL 0.6 MG/DL (0.2-1.0); BLOOD UREA NITROGEN 16 MG/DL (7-18); CALCIUM LEVEL 8.9 MG/DL (8.5-10.1); CARBON DIOXIDE LEVEL 32 MEQ/L (21-32); CHLORIDE LEVEL 105 MEQ/L (98-107); CREATININE FOR GFR 0.63 MG/DL (0.55-1.30); FREE T4 1.09 NG/DL (0.76-1.46); GLOMERULAR FILTRATION RATE > 60.0 (>58); GLUCOSE, FASTING 89 MG/DL (70-100); POTASSIUM SERUM 3.5 MEQ/L (3.5-5.1); SODIUM LEVEL 143 MEQ/L (136-145); TOTAL PROTEIN 6.8 GM/DL (6.4-8.2)
[2017-10-02 10:01] LABS: TOTAL 25(OH) VITAMIN D 35.7 NG/ML (30.0-100.0); TOTAL T3 95.3 NG/DL (60.0-181.0)
[2017-10-02 10:02] LABS: VITAMIN B12 LEVEL 556 PG/ML (247-911)
[2017-10-06 00:06] LABS: VITAMIN B2 (RIBOFLAVIN) 186 ug/L (137-370)
== END ==
LOC: M LAB 06:14
DX: E04.0 Nontoxic diffuse goiter (principal); R79.9 Abnormal finding of blood chemistry, unspecified; M79.2 Neuralgia and neuritis, unspecified; Z79.899 Other long term (current) drug therapy; D50.9 Iron deficiency anemia, unspecified; E55.9 Vitamin D deficiency, unspecified
CPT/HCPCS: 84443

== ENCOUNTER → 2018-01-07 | Outpatient (CLI) | payer BC ==
[2018-01-07 07:29] LABS: BASO % 0.5 % (0.0-1.0); EOS # 0.1 10^3/uL (0.0-0.50); EOS % 1.6 % (0.0-3.0); HEMATOCRIT 39.6 % (36.0-47.0); HEMOGLOBIN 13.3 g/dl (12.0-15.5); IMMATURE GRANULOCYTE % 0.3 % (0-3.0); LYMPH # 1.4 10^3/uL (1.5-4.5); LYMPH % 16.3 % (24.0-44.0); MEAN CORPUSCULAR HEMOGLOBIN 29.9 pg (27.0-33.0); MEAN CORPUSCULAR HGB CONC 33.6 g/dl (32.0-36.5); MONO # 0.6 10^3/uL (0.0-0.8); MONO % 6.6 % (0.0-5.0); NEUTROPHILS # 6.6 10^3/uL (1.8-7.7); NEUTROPHILS % 74.7 % (36.0-66.0); PLATELET COUNT, AUTOMATED 247 10^3/uL (150-450); RED BLOOD COUNT 4.45 10^6/uL (4.00-5.40); RED CELL DISTRIBUTION WIDTH 12.9 % (11.5-14.5); WHITE BLOOD COUNT 8.9 10^3/uL (4.0-10.0)
[2018-01-07 07:50] LABS: ALBUMIN 3.6 GM/DL (3.2-5.2); ALBUMIN/GLOBULIN RATIO 1.16 (1.00-1.93); ALKALINE PHOSPHATASE 59 U/L (45-117); ALT/SGPT 26 U/L (12-78); ANION GAP 5 MEQ/L (8-16); AST/SGOT 9 U/L (7-37); BILIRUBIN,TOTAL 0.4 MG/DL (0.2-1.0); BLOOD UREA NITROGEN 17 MG/DL (7-18); CALCIUM LEVEL 8.9 MG/DL (8.5-10.1); CARBON DIOXIDE LEVEL 29 MEQ/L (21-32); CHLORIDE LEVEL 107 MEQ/L (98-107); CREATININE FOR GFR 0.55 MG/DL (0.55-1.30); FREE T4 1.03 NG/DL (0.76-1.46); GLOMERULAR FILTRATION RATE > 60.0 (>58); GLUCOSE, FASTING 86 MG/DL (70-100); POTASSIUM SERUM 3.8 MEQ/L (3.5-5.1); SODIUM LEVEL 141 MEQ/L (136-145); TOTAL PROTEIN 6.7 GM/DL (6.4-8.2)
[2018-01-07 09:54] LABS: TOTAL 25(OH) VITAMIN D 31.4 NG/ML (30.0-100.0); TOTAL T3 92.6 NG/DL (60.0-181.0)
[2018-01-07 09:55] LABS: VITAMIN B12 LEVEL 483 PG/ML (247-911)
== END ==
LOC: M LAB 06:33
DX: Z51.81 Encounter for therapeutic drug level monitoring (principal); Z79.899 Other long term (current) drug therapy; E04.0 Nontoxic diffuse goiter; M79.2 Neuralgia and neuritis, unspecified; E55.9 Vitamin D deficiency, unspecified
CPT/HCPCS: 84443

== ENCOUNTER → 2018-08-05 | Outpatient (CLI) | payer BC ==
[~2018-08-05] MED LIST changes: -ALDA25TA PO; +SPIR1TAB34 PO; -VITA1CAP40 PO; +VITA50005 PO; +ZOFR4TAB14 PO; -ZOFR4TAB3 PO
[2018-08-05 19:58] LABS: BLOOD UREA NITROGEN 16 MG/DL (7-18); CALCIUM LEVEL 8.7 MG/DL (8.5-10.1); CARBON DIOXIDE LEVEL 25 MEQ/L (21-32); CHLORIDE LEVEL 106 MEQ/L (98-107); GLOMERULAR FILTRATION RATE > 60.0 (>58); GLUCOSE, FASTING 77 MG/DL (70-100); POTASSIUM SERUM 4.3 MEQ/L (3.5-5.1); SODIUM LEVEL 141 MEQ/L (136-145)
== END ==
LOC: M ADAMS 16:24
PROVIDERS: ATTEND Family Medicine
DX: E87.6 Hypokalemia (principal)

== ENCOUNTER → 2019-04-08 | Outpatient (CLI) | payer BC ==
[2019-04-08 20:40] LABS: BASO # 0.1 10^3/uL (0.0-0.2); BASO % 0.6 % (0.0-1.0); EOS # 0.2 10^3/uL (0.0-0.5); EOS % 1.9 % (0.0-3.0); HEMATOCRIT 39.4 % (36.0-47.0); LYMPH # 1.6 10^3/uL (1.5-5.0); LYMPH % 15.8 % (24.0-44.0); MEAN CORPUSCULAR VOLUME 90.8 fl (80.0-96.0); MONO # 0.7 10^3/uL (0.0-0.8); MONO % 6.7 % (0.0-5.0); NEUTROPHILS # 7.6 10^3/uL (1.5-8.5); NEUTROPHILS % 74.4 % (36.0-66.0); PLATELET COUNT, AUTOMATED 286 10^3/uL (150-450); RED BLOOD COUNT 4.34 10^6/uL (4.00-5.40); WHITE BLOOD COUNT 10.2 10^3/uL (4.0-10.0)
[2019-04-08 21:10] LABS: ALBUMIN 3.8 GM/DL (3.2-5.2); ALT/SGPT 22 U/L (12-78); BILIRUBIN,TOTAL 0.3 MG/DL (0.2-1.0); BLOOD UREA NITROGEN 23 MG/DL (7-18); CALCIUM LEVEL 8.9 MG/DL (8.5-10.1); CARBON DIOXIDE LEVEL 28 MEQ/L (21-32); CHLORIDE LEVEL 103 MEQ/L (98-107); CREATININE FOR GFR 0.62 MG/DL (0.55-1.30); FREE T4 1.03 NG/DL (0.76-1.46); GLOMERULAR FILTRATION RATE > 60.0 (>58); GLUCOSE, FASTING 74 MG/DL (70-100); POTASSIUM SERUM 3.8 MEQ/L (3.5-5.1); SODIUM LEVEL 138 MEQ/L (136-145); THYROID STIMULATING HORMONE 0.972 uIU/ML (0.358-3.740); TOTAL 25(OH) VITAMIN D 25.8 NG/ML (30.0-100.0); TOTAL PROTEIN 6.8 GM/DL (6.4-8.2); TOTAL T3 98.3 NG/DL (60.0-181.0); VITAMIN B12 LEVEL 427 PG/ML (247-911)
[2019-04-14 00:06] LABS: VITAMIN B1 LEVEL WHOLE BLOOD 182.4 nmol/L (66.5-200.0); VITAMIN B6,PYRIDOXAL PHOSPHATE 22.2 ug/L (2.0-32.8)
[2019-04-16 09:31] LABS: HEPATITIS B SURFACE ANTIBODY NEGATIVE (POSITIVE)
== END ==
LOC: M LAB 17:27
PROVIDERS: ATTEND Family Medicine
DX: Z51.81 Encounter for therapeutic drug level monitoring (principal); Z79.899 Other long term (current) drug therapy; E04.0 Nontoxic diffuse goiter; M79.2 Neuralgia and neuritis, unspecified; D50.9 Iron deficiency anemia, unspecified; E55.9 Vitamin D deficiency, unspecified

== ENCOUNTER → 2019-06-23 | Outpatient (REF) | payer BC ==
[~2019-06-23] MED LIST changes: -METH4TAB28 PO; +METH4TAB8 PO
== END ==
LOC: M LAB REF 12:56
PROVIDERS: ATTEND Physician Assistant
DX: J02.9 Acute pharyngitis, unspecified (principal)

== ENCOUNTER → 2020-08-23 | Outpatient (REF) | payer BC | LOC: M LAB REF 12:43 | PROVIDERS: ATTEND Nurse Practitioner Family | DX: J02.9 Acute pharyngitis, unspecified (principal) ==

== ENCOUNTER → 2020-11-17 | Outpatient (CLI) | payer BC ==
[~2020-11-17] MED LIST changes: +CIPR7.5D5 AD; -CIPRODEX AD
--- NOTE | 2020-11-17 17:18 | REP ---
INDICATION: NONTOXIC DIFFUSE GOITER. COMPARISON: 04/08/2019 TECHNIQUE: There is no evidence of an acute fracture or destructive osseous lesion. The mortise is within normal limits FINDINGS: The right lobe of the thyroid gland measures 5.2 x 1.8 x 1.7 cm and the left lobe measures 5 x 1.2 x 1.5 cm. The isthmus measures 3 mm. The upper pole region of the right lobe there is a 6 mm size complex cystic structure. In the lower pole region of the right lobe there is a 1.2 cm sized nodule. In the midpole region of the left lobe there is a 2 mm sized echogenic area IMPRESSION: Minimal findings as described above no significant change from the prior exam <Electronically signed by Radhames Gomez > 11/17/20 [id number]
== END ==
LOC: M RAD 16:16
PROVIDERS: ATTEND Family Medicine
DX: E04.0 Nontoxic diffuse goiter (principal)

== ENCOUNTER → 2020-11-27 | Outpatient (CLI) | payer BC ==
[2020-11-27 09:17] LABS: BASO # 0.1 10^3/uL (0.0-0.2); BASO % 0.6 % (0.0-1.0); EOS # 0.2 10^3/uL (0.0-0.5); EOS % 1.9 % (0.0-3.0); HEMATOCRIT 41.7 % (36.0-47.0); HEMOGLOBIN 13.7 g/dl (12.0-15.5); LYMPH # 1.4 10^3/uL (1.5-5.0); LYMPH % 17.6 % (24.0-44.0); MEAN CORPUSCULAR HEMOGLOBIN 28.8 pg (27.0-33.0); MEAN CORPUSCULAR HGB CONC 32.9 g/dl (32.0-36.5); MEAN CORPUSCULAR VOLUME 87.6 fl (80.0-96.0); MONO # 0.6 10^3/uL (0.0-0.8); MONO % 7.3 % (2.0-8.0); NEUTROPHILS # 5.7 10^3/uL (1.5-8.5); NEUTROPHILS % 72.2 % (36.0-66.0); PLATELET COUNT, AUTOMATED 271 10^3/uL (150-450); RED BLOOD COUNT 4.76 10^6/uL (4.00-5.40); WHITE BLOOD COUNT 7.9 10^3/uL (4.0-10.0)
[2020-11-27 09:53] LABS: ALBUMIN 3.6 GM/DL (3.2-5.2); ALT/SGPT 20 U/L (12-78); BILIRUBIN,TOTAL 0.4 MG/DL (0.2-1.0); BLOOD UREA NITROGEN 13 MG/DL (7-18); CALCIUM LEVEL 8.7 MG/DL (8.5-10.1); CARBON DIOXIDE LEVEL 30 MEQ/L (21-32); CHLORIDE LEVEL 107 MEQ/L (98-107); CREATININE FOR GFR 0.64 MG/DL (0.55-1.30); FREE T4 1.06 NG/DL (0.76-1.46); GLOMERULAR FILTRATION RATE > 60.0 (>58); GLUCOSE, FASTING 91 MG/DL (70-100); POTASSIUM SERUM 3.8 MEQ/L (3.5-5.1); SODIUM LEVEL 141 MEQ/L (136-145); THYROID STIMULATING HORMONE 0.798 uIU/ML (0.358-3.740); TOTAL PROTEIN 6.7 GM/DL (6.4-8.2)
[2020-11-29 11:05] LABS: TOTAL T3 102.1 NG/DL (60.0-181.0); VITAMIN B12 LEVEL 848 PG/ML (247-911)
== END ==
LOC: M LAB 08:55
PROVIDERS: ATTEND Family Medicine
DX: M79.2 Neuralgia and neuritis, unspecified (principal); Z79.899 Other long term (current) drug therapy; E55.9 Vitamin D deficiency, unspecified; E03.9 Hypothyroidism, unspecified

== ENCOUNTER → 2021-01-01 | Outpatient (CLI) | payer BC ==
[2021-01-01 10:30] LABS: HEMOGLOBIN A1c 5.2 %
== END ==
LOC: M LAB 08:55
PROVIDERS: ATTEND Family Medicine
DX: E16.2 Hypoglycemia, unspecified (principal)

== ENCOUNTER → 2021-04-18 | Outpatient (CLI) | payer BC ==
--- NOTE | 2021-04-19 07:16 | REPMRS ---
Patient History The patient states she had a clinical breast exam on 03-25-2021. No Hormone Replacement Therapy Patient states no breast complaints today. Patient has signed MRS History Sheet. Digital Woman Screen Mammo: April 18, 2021 - Exam #: [id number] Bilateral CC and MLO view(s) were taken. Technologist: Guillermina Dejesus Automatic Clipper And Stripper Prior study comparison: April 02, 2020, bilateral screening 3D/tomosynthesis, performed at [facility]. October 08, 2019, bilateral screening 3D/tomosynthesis, performed at [facility]. FINDINGS: The breast tissue is heterogeneously dense. This may lower the sensitivity of mammography. Screening. Digital screening (2D) mammography was performed bilaterally in the CC and MLO projections. Additionally, breast tomosynthesis (3D mammography) was performed bilaterally in the CC and MLO projections. Todays exam was compared to the prior exam/exams. By history, the patient has no complaints of a palpable breast abnormality or other significant breast complaints. The breasts are unchanged in size and shape.Once again, dense heterogenous fibroglandular elements are seen bilaterally in a stable appearing pattern but to such a degree that the sensitivity of the mammogram in detecting cancer is decreased. There are no sarah-soft tissue densities or spiculated masses. There is no internal architectural distortion. There are no suspicious sarah-calcific clusters. Skin thickening or nipple retraction is not present. IMPRESSION: BI-RADS Category 2- Benign Findings. There is no evidence of malignant alteration of the breasts. Followup examination recommended in one year. The Volpara volumetric breast density category is C, the breasts are heterogenously dense which may obscure small masses. This mammogram was read with the assistance of [facility] [employer],an FDA approved computer aided detection system for mammography. The lifetime Tyrer-Cuzick score is 10.8 % Due to the density of the breasts or Tyrer Cuzick score of 20% or greater, MRI/whole breast screening ultrasound is warranted. Negative x-ray reports should not delay surgical consultation if a dominant or clinically suspicious mass is present. Not all breast cancers can be identified by mammography. Therefore, we recommend that you continue to perform regular breast self-examination and physical examination and then promptly contact your physician of any concerns or changes. Adenosis and dense breasts may obscure an underlying neoplasm. Assessment: BI-RADS/ACR category 2 mammogram. Benign Findings. Recommendation Routine screening mammogram of both breasts in 1 year. Electronically Signed By: Radhames Gomez DO 04/18/21 1600
== END ==
LOC: M WHC 15:18
PROVIDERS: ATTEND Obstetrics & Gynecology
DX: Z12.31 Encounter for screening mammogram for malignant neoplasm of breast (principal)

== ENCOUNTER → 2021-09-24 | Outpatient (REF) | payer BC ==
[~2021-09-24] MED LIST changes: -CEFD1CAP8 PO; +CEFD300C41 PO
== END ==
LOC: M WUC 23:59
PROVIDERS: ATTEND Physician Assistant
DX: R30.0 Dysuria (principal)

== ENCOUNTER → 2021-10-06 | Outpatient (CLI) | payer BC | LOC: M RAD 16:40 | PROVIDERS: ATTEND Obstetrics & Gynecology | DX: N94.12 Deep dyspareunia (principal); N92.1 Excessive and frequent menstruation with irregular cycle; D25.2 Subserosal leiomyoma of uterus; N85.4 Malposition of uterus ==

== ENCOUNTER → 2021-11-26 | Outpatient (CLI) | payer BC ==
[~2021-11-26] MED LIST changes: +BUPR75TA5 PO; +NALT50TA4 PO; +TORS5TAB2 PO; +XANA0.5T PO
== END ==
LOC: M LABSMTC 09:07
PROVIDERS: ATTEND Anesthesiology
DX: Z01.812 Encounter for preprocedural laboratory examination (principal); Z20.822 Contact with and (suspected) exposure to COVID-19

== ENCOUNTER → 2021-11-30 | Outpatient (CLI) | payer BC | LOC: M RAD 16:16 | PROVIDERS: ATTEND Family Medicine | DX: E04.2 Nontoxic multinodular goiter (principal) ==

== ENCOUNTER 2021-12-01 06:09 | Day surgery (SDC) | payer BC ==
[~2021-12-01] VITALS: Ht 177.8 cm; Wt 87.1 kg
[2021-12-01] VITALS (7 sets, daily range): BP systolic 128–151; BP diastolic 8–95
[~2021-12-01 06:09] MED LIST changes: +LR 1,000 ML IV ONE
[2021-12-01] MEDS ORDERED: ceFAZolin SOD 2 GM in IV 1 EA IV ONE (07:00)
[2021-12-01 07:09] LABS: HEMATOCRIT 39.8 % (36.0-47.0); HEMOGLOBIN 13.4 g/dl (12.0-15.5); MEAN CORPUSCULAR HEMOGLOBIN 28.5 pg (27.0-33.0); MEAN CORPUSCULAR HGB CONC 33.7 g/dl (32.0-36.5); MEAN CORPUSCULAR VOLUME 84.7 fl (80.0-96.0); PLATELET COUNT, AUTOMATED 295 10^3/uL (150-450); WHITE BLOOD COUNT 7.9 10^3/uL (4.0-10.0)
[2021-12-01] MEDS ORDERED: LIDOCAINE 2% 100MG/5ML SDV (FOR ANES.) As Ordered ONE (07:13)
[2021-12-01] MEDS ORDERED: propofoL 200 MG/20 ML VIAL As Ordered ONE (07:13)
[2021-12-01] MEDS ORDERED: fentaNYL 250 MCG/5 ML INJECTION As Ordered ONE (07:13)
[2021-12-01] MEDS ORDERED: ROCURONIUM BROMIDE 50 MG/5 ML VIAL As Ordered ONE ×2 (07:13→08:38)
[2021-12-01] MEDS ORDERED: MIDAZOLAM INJ 2MG/2ML VIAL (J2250 PER 1MG) As Ordered ONE (07:14)
[2021-12-01] MEDS ORDERED: SCOPOLAMINE 1MG TRANSDERMAL PATCH As Ordered ONE (07:38)
[2021-12-01] MEDS ORDERED: SCOPOLAMINE 1MG TRANSDERMAL PATCH TOP ONE (08:00)
[2021-12-01] MEDS ORDERED: ACETAMINOPHEN 1000MG 100ML IV BTL (OFIRMEV) (J0131 PER 10MG) As Ordered ONE (08:33)
[2021-12-01] MEDS ORDERED: KETOROLAC 60MG 2ML VIAL As Ordered ONE (08:34)
[2021-12-01] MEDS ORDERED: METOCLOPRAMIDE INJ 10MG/2ML VIAL (J2765 PER 1) As Ordered ONE (08:34)
[2021-12-01] MEDS ORDERED: ONDANSETRON 4MG/2ML VIAL As Ordered ONE (08:34)
[2021-12-01] MEDS ORDERED: dexameTHASONE 4 MG/ML 1ML VIAL (J1100 PER 1MG) As Ordered ONE (08:34)
[2021-12-01] MEDS ORDERED: SUGAMMADEX SODIUM 500 MG/5 ML VIAL (BRIDION) As Ordered ONE (08:37)
[2021-12-01] MEDS ORDERED: DESFLURANE 240 ML INHALANT As Ordered ONE (08:43)
[2021-12-01] MEDS ORDERED: HYDROmorphone HCL 2MG/ML 1ML VIAL As Ordered ONE (08:48)
[2021-12-01] MEDS ORDERED: oxyCODONE 5MG TAB PO PRN (11:15)
[2021-12-01] MEDS ORDERED: fentaNYL 100 MCG/2 ML INJECTION IV PRN (11:15)
[2021-12-01] MEDS ORDERED: LR 1,000 ML IV SCH (11:15)
[2021-12-01] MEDS ORDERED: ONDANSETRON 4MG/2ML VIAL IV PRN (11:15)
[2021-12-01] MEDS ORDERED: IBUPROFEN 600MG TAB PO PRN (11:20)
[2021-12-01] MEDS ORDERED: EPIDURAL/PCA KEYS XX PRN (11:20)
[2021-12-01] MEDS ORDERED: NALOXONE INJ 0.4MG/1ML VIAL (J2310 PER 1MG) IV PRN (11:20)
[2021-12-01] MEDS ORDERED: MORPHINE 1MG/ML IN 0.9% NACL 100ML IV BAG IV PRN (11:20)
[2021-12-01] MEDS ORDERED: diphenhydrAMINE 50MG/ML VIAL (J1200) IV PRN (11:20)
[2021-12-01] MEDS: MEPERIDINE INJ 25 MG/ML VIAL (J2175) IV PRN ×2 (11:24→11:32)
[2021-12-01] MEDS: LR 1,000 ML IV SCH ×2 (13:14→19:52)
[2021-12-02 00:09] VITALS: BP 151/90
[2021-12-02 02:00] VITALS: BP 138/76
[2021-12-02] MEDS: LR 1,000 ML IV SCH (03:49)
[2021-12-02] MEDS ORDERED: NORCO, ANEXSIA 5/325MG TABLET (HYDROcodone/ACETAMINOPHEN) PO PRN (06:00)
[2021-12-02 06:05] VITALS: BP 114/70
[2021-12-02 07:11] LABS: HEMATOCRIT 34.8 % (36.0-47.0); HEMOGLOBIN 11.7 g/dl (12.0-15.5); MEAN CORPUSCULAR HEMOGLOBIN 28.7 pg (27.0-33.0); MEAN CORPUSCULAR HGB CONC 33.6 g/dl (32.0-36.5); MEAN CORPUSCULAR VOLUME 85.5 fl (80.0-96.0); PLATELET COUNT, AUTOMATED 236 10^3/uL (150-450); RED BLOOD COUNT 4.07 10^6/uL (4.00-5.40); WHITE BLOOD COUNT 13.4 10^3/uL (4.0-10.0)
== END 2021-12-02 09:30 | disposition home or self-care (01) ==
LOC: M SDC 06:09 → M MSPAV 12:53 → M SDC 12-02 09:30
PROVIDERS: ATTEND Obstetrics & Gynecology
DX: N93.9 Abnormal uterine and vaginal bleeding, unspecified (principal); D25.9 Leiomyoma of uterus, unspecified; Z91.040 Latex allergy status; Z91.012 Allergy to eggs; Z79.899 Other long term (current) drug therapy; F41.9 Anxiety disorder, unspecified; Z87.891 Personal history of nicotine dependence
CPT/HCPCS: 36415; 58542; 81025; 85027; 86850; 86900; 86901; 88307; 96374; J0131; J0690; J1100; J1170; J2175; J2250; J2270; J2405; J2765; J3010

== ENCOUNTER 2021-12-06 13:15 | Inpatient (IN) | payer BC ==
[~2021-12-06] VITALS: Ht 177.8 cm; Wt 88.5 kg
[~2021-12-06 13:15] MED LIST changes: -LR 1,000 ML IV ONE
[2021-12-06] MEDS ORDERED: ONDANSETRON 4MG/2ML VIAL IV ONE (14:00)
[2021-12-06] MEDS ORDERED: NS 1,000 ML IV ONE (14:00)
[2021-12-06 14:38] LABS: BASO # 0.1 10^3/uL (0.0-0.2); BASO % 0.3 % (0.0-1.0); EOS % 0.1 % (0.0-3.0); HEMATOCRIT 40.1 % (36.0-47.0); HEMOGLOBIN 13.1 g/dl (12.0-15.5); LYMPH # 0.5 10^3/uL (1.5-5.0); LYMPH % 2.7 % (24.0-44.0); MEAN CORPUSCULAR HEMOGLOBIN 28.3 pg (27.0-33.0); MEAN CORPUSCULAR HGB CONC 32.7 g/dl (32.0-36.5); MEAN CORPUSCULAR VOLUME 86.6 fl (80.0-96.0); MONO # 0.9 10^3/uL (0.0-0.8); MONO % 4.8 % (2.0-8.0); NEUTROPHILS # 17.2 10^3/uL (1.5-8.5); NEUTROPHILS % 91.5 % (36.0-66.0); PLATELET COUNT, AUTOMATED 276 10^3/uL (150-450); RED BLOOD COUNT 4.63 10^6/uL (4.00-5.40); WHITE BLOOD COUNT 18.8 10^3/uL (4.0-10.0)
[2021-12-06 15:00] LABS: BLOOD UREA NITROGEN 10 MG/DL (7-18); CARBON DIOXIDE LEVEL 27 MEQ/L (21-32); CHLORIDE LEVEL 103 MEQ/L (98-107); CREATININE FOR GFR 0.71 MG/DL (0.55-1.30); GLOMERULAR FILTRATION RATE > 60.0 (>58); GLUCOSE, FASTING 111 MG/DL (70-100); POTASSIUM SERUM 3.9 MEQ/L (3.5-5.1); SODIUM LEVEL 136 MEQ/L (136-145)
[2021-12-06] MEDS ORDERED: ACETAMINOPHEN TAB 650MG DOSE (2X325MG) PO ONE (15:40)
[2021-12-06] MEDS ORDERED: ISOVUE-370 76% 100ML VIAL As Ordered ONE (16:18)
[2021-12-06 19:08] LABS: RSV AMPLIFICATION NEGATIVE (NEGATIVE)
[2021-12-06] MEDS ORDERED: HYDR-3713 PO (19:54)
[2021-12-06] MEDS ORDERED: EPIN0.3I11 IM (19:54)
[2021-12-06] MEDS ORDERED: ACET-683 PO (19:54)
[2021-12-06] MEDS ORDERED: HOME MED LIST COMPLETE! XX SCH (19:55)
[2021-12-06] MEDS: NORCO, ANEXSIA 5/325MG TABLET (HYDROcodone/ACETAMINOPHEN) PO PRN (20:26)
[2021-12-06] MEDS: LR 1,000 ML IV SCH (20:28)
[2021-12-06 21:00] VITALS: BP 105/67
[2021-12-06] MEDS: DOCUSATE SODIUM 100MG CAPSULE PO SCH (21:11)
[2021-12-06] MEDS: ceFAZolin SOD 2 GM in IV 1 EA IV SCH (21:53)
[2021-12-06] MEDS: CLINDAMYCIN 600 MG in IV 1 EA IV SCH (22:43)
[2021-12-06] MEDS ORDERED: GENTAMICIN 120 MG in D5W 50 ML IV ONE (23:00)
[2021-12-07] VITALS: BP 102/62
[2021-12-07 04:00] VITALS: BP 111/67
[2021-12-07] MEDS: CLINDAMYCIN 600 MG in IV 1 EA IV SCH (04:02)
[2021-12-07] MEDS ORDERED: ACETAMINOPHEN TAB 650MG DOSE (2X325MG) PO ONE (04:15)
[2021-12-07] MEDS: ceFAZolin SOD 2 GM in IV 1 EA IV SCH ×3 (05:04→21:14)
[2021-12-07] MEDS: GENTAMICIN 80 MG in IV 1 EA IV SCH ×3 (06:24→23:23)
[2021-12-07 07:47] LABS: HEMATOCRIT 37.5 % (36.0-47.0); MEAN CORPUSCULAR VOLUME 87.6 fl (80.0-96.0); PLATELET COUNT, AUTOMATED 225 10^3/uL (150-450); RED BLOOD COUNT 4.28 10^6/uL (4.00-5.40); WHITE BLOOD COUNT 10.8 10^3/uL (4.0-10.0)
[2021-12-07] MEDS: NORCO, ANEXSIA 5/325MG TABLET (HYDROcodone/ACETAMINOPHEN) PO PRN ×3 (07:59→19:49)
[2021-12-07] MEDS: DOCUSATE SODIUM 100MG CAPSULE PO SCH ×2 (07:59→19:41)
[2021-12-07 08:00] VITALS: BP 100/60
[2021-12-07] MEDS: CLINDAMYCIN 900 MG in IV 1 EA IV SCH ×2 (10:00→17:52)
[2021-12-07 12:00] VITALS: BP 114/64
[2021-12-07] MEDS: LR 1,000 ML IV SCH (12:04)
[2021-12-07 16:00] VITALS: BP 104/71
[2021-12-07 21:00] VITALS: BP 104/58
[2021-12-08 02:30] VITALS: BP 106/64
[2021-12-08] MEDS: CLINDAMYCIN 900 MG in IV 1 EA IV SCH ×2 (02:36→09:40)
[2021-12-08] MEDS: NORCO, ANEXSIA 5/325MG TABLET (HYDROcodone/ACETAMINOPHEN) PO PRN (02:39)
[2021-12-08] MEDS: ceFAZolin SOD 2 GM in IV 1 EA IV SCH (05:16)
[2021-12-08] MEDS: GENTAMICIN 80 MG in IV 1 EA IV SCH (06:51)
[2021-12-08 08:00] VITALS: BP 109/58
[2021-12-08] MEDS: DOCUSATE SODIUM 100MG CAPSULE PO SCH (09:00)
[2021-12-08] MEDS ORDERED: HYDR-3713 PO (10:26)
[2021-12-08] MEDS ORDERED: COLA100C5 PO (10:53)
[2021-12-08] MEDS ORDERED: GENTAMICIN 100 MG in IV 1 EA IV SCH (14:00)
== END 2021-12-08 12:40 | disposition home or self-care (01) | DRG 721 ==
LOC: M ED 13:15 → M ED INP 18:30 → ENRESERV 19:45 → M PED 21:00
PROVIDERS: ADMIT Obstetrics & Gynecology; ATTEND Obstetrics & Gynecology
DX: T81.42XA Infection following a procedure, deep incisional surgical site, initial encounter (principal); Z92.21 Personal history of antineoplastic chemotherapy; Z98.84 Bariatric surgery status; Z90.79 Acquired absence of other genital organ(s); Z91.040 Latex allergy status

== ENCOUNTER → 2022-01-04 | Outpatient (CLI) | payer BC ==
[~2022-01-04] MED LIST changes: +ACET-683 PO; +COLA100C5 PO; +EPIN0.3I11 IM; +HYDR-3713 PO
[2022-01-04 08:09] LABS: BASO % 0.5 % (0.0-1.0); EOS # 0.2 10^3/uL (0.0-0.5); EOS % 2.5 % (0.0-3.0); HEMATOCRIT 39.8 % (36.0-47.0); HEMOGLOBIN 12.8 g/dl (12.0-15.5); LYMPH # 1.4 10^3/uL (1.5-5.0); LYMPH % 23.1 % (24.0-44.0); MEAN CORPUSCULAR HEMOGLOBIN 28.1 pg (27.0-33.0); MEAN CORPUSCULAR HGB CONC 32.2 g/dl (32.0-36.5); MEAN CORPUSCULAR VOLUME 87.3 fl (80.0-96.0); MONO # 0.6 10^3/uL (0.0-0.8); MONO % 9.5 % (2.0-8.0); NEUTROPHILS # 3.8 10^3/uL (1.5-8.5); NEUTROPHILS % 64.1 % (36.0-66.0); PLATELET COUNT, AUTOMATED 208 10^3/uL (150-450); RED BLOOD COUNT 4.56 10^6/uL (4.00-5.40); WHITE BLOOD COUNT 5.9 10^3/uL (4.0-10.0)
[2022-01-04 08:48] LABS: ALBUMIN 3.5 GM/DL (3.2-5.2); ALT/SGPT 21 U/L (12-78); BILIRUBIN,TOTAL 0.4 MG/DL (0.2-1.0); BLOOD UREA NITROGEN 15 MG/DL (7-18); CALCIUM LEVEL 9.6 MG/DL (8.5-10.1); CARBON DIOXIDE LEVEL 30 MEQ/L (21-32); CHLORIDE LEVEL 107 MEQ/L (98-107); CREATININE FOR GFR 0.66 MG/DL (0.55-1.30); FREE T4 0.98 NG/DL (0.76-1.46); GLOMERULAR FILTRATION RATE > 60.0 (>58); GLUCOSE, FASTING 88 MG/DL (70-100); POTASSIUM SERUM 4.4 MEQ/L (3.5-5.1); SODIUM LEVEL 142 MEQ/L (136-145); THYROID STIMULATING HORMONE 0.958 uIU/ML (0.358-3.740); TOTAL PROTEIN 6.9 GM/DL (6.4-8.2)
[2022-01-04 09:22] LABS: TOTAL 25(OH) VITAMIN D 18.9 NG/ML (30.0-100.0)
[2022-01-04 09:23] LABS: TOTAL T3 101.6 NG/DL (60.0-181.0); VITAMIN B12 LEVEL 504 PG/ML (247-911)
== END ==
LOC: M LAB 07:19
PROVIDERS: ATTEND Family Medicine
DX: M79.2 Neuralgia and neuritis, unspecified (principal); D50.9 Iron deficiency anemia, unspecified; E55.9 Vitamin D deficiency, unspecified; E03.9 Hypothyroidism, unspecified; N95.9 Unspecified menopausal and perimenopausal disorder; Z79.899 Other long term (current) drug therapy

== ENCOUNTER → 2022-02-09 | Outpatient (CLI) | payer BC ==
[2022-02-09 14:17] LABS: BLOOD UREA NITROGEN 19 MG/DL (7-18); CALCIUM LEVEL 9.1 MG/DL (8.5-10.1); CARBON DIOXIDE LEVEL 33 MEQ/L (21-32); CHLORIDE LEVEL 105 MEQ/L (98-107); CREATININE FOR GFR 0.69 MG/DL (0.55-1.30); GLOMERULAR FILTRATION RATE > 60.0 (>58); GLUCOSE, FASTING 99 MG/DL (70-100); POTASSIUM SERUM 3.8 MEQ/L (3.5-5.1); SODIUM LEVEL 140 MEQ/L (136-145)
== END ==
LOC: M LAB 12:42
PROVIDERS: ATTEND Podiatrist Foot & Ankle Surgery
DX: Z01.812 Encounter for preprocedural laboratory examination (principal)

== ENCOUNTER → 2022-06-06 | Outpatient (CLI) | payer BC ==
[2022-06-06 23:02] LABS: ESTRADIOL < 19.0 PG/ML; FOLLICLE STIMULATING HORMONE 66.2 mIU/ML; LUTEINIZING HORMONE 36.7 mIU/ML; PROGESTERONE 0.21 NG/ML
== END ==
LOC: M LAB 15:54
PROVIDERS: ATTEND Obstetrics & Gynecology
DX: N95.1 Menopausal and female climacteric states (principal)

== ENCOUNTER → 2022-07-11 | Outpatient (CLI) | payer BC | LOC: M WHC 16:50 | PROVIDERS: ATTEND Advanced Practice Midwife | DX: Z12.31 Encounter for screening mammogram for malignant neoplasm of breast (principal) ==

== ENCOUNTER → 2022-10-06 | Outpatient (CLI) | payer BC ==
[2022-10-06 18:22] LABS: FOLLICLE STIMULATING HORMONE 45.3 mIU/ML
[2022-10-06 18:23] LABS: ESTRADIOL 33.2 PG/ML; LUTEINIZING HORMONE 41.3 mIU/ML
[2022-10-06 18:30] LABS: PROGESTERONE 0.24 NG/ML
[2022-10-09 21:07] LABS: TESTOSTERONE FREE (DIRECT) 0.8 pg/mL (0.0-4.2)
== END ==
LOC: M LAB 16:05
PROVIDERS: ATTEND Obstetrics & Gynecology
DX: N95.1 Menopausal and female climacteric states (principal); E34.9 Endocrine disorder, unspecified; F52.0 Hypoactive sexual desire disorder

== ENCOUNTER → 2022-11-22 | Outpatient (CLI) | payer BC | LOC: M WUC 08:52 | PROVIDERS: ATTEND Nurse Practitioner Family | DX: M54.50 Low back pain, unspecified (principal) ==

== ENCOUNTER → 2023-01-30 | Outpatient (CLI) | payer BC | LOC: M RAD 06:30 | PROVIDERS: ATTEND Family Medicine | DX: E04.0 Nontoxic diffuse goiter (principal) ==

== ENCOUNTER → 2023-02-05 | Outpatient (CLI) | payer BC ==
[2023-02-05 19:10] LABS: ESTRADIOL 43.9 PG/ML; FOLLICLE STIMULATING HORMONE 27.6 mIU/ML
[2023-02-05 19:11] LABS: PROGESTERONE < 0.21 NG/ML
== END ==
LOC: M WUC 11:56
PROVIDERS: ATTEND Obstetrics & Gynecology
DX: N95.1 Menopausal and female climacteric states (principal); E34.9 Endocrine disorder, unspecified; F52.0 Hypoactive sexual desire disorder

== ENCOUNTER → 2023-02-28 | Outpatient (CLI) | payer BC ==
[2023-02-28 17:24] LABS: FREE T4 1.16 NG/DL (0.89-1.76); TOTAL T3 104.4 NG/DL (60.0-181.0)
[2023-02-28 17:25] LABS: BLOOD UREA NITROGEN 16 MG/DL (9-23); CALCIUM LEVEL 8.9 MG/DL (8.5-10.1); CARBON DIOXIDE LEVEL 27 MMOL/L (20-31); CHLORIDE LEVEL 102 MMOL/L (98-107); GLOMERULAR FILTRATION RATE > 60.0 (>58); GLUCOSE, FASTING 84 MG/DL (60-100); POTASSIUM SERUM 3.8 MMOL/L (3.5-5.1); SODIUM LEVEL 138 MMOL/L (136-145); THYROID STIMULATING HORMONE 1.622 uIU/ML (0.55-4.78)
== END ==
LOC: M WUC 12:36
PROVIDERS: ATTEND Family Medicine
DX: L68.0 Hirsutism (principal); Z79.899 Other long term (current) drug therapy; E04.9 Nontoxic goiter, unspecified

== ENCOUNTER → 2023-03-19 | Outpatient (CLI) | payer BC ==
[2023-03-19 18:17] LABS: BLOOD UREA NITROGEN 17 MG/DL (9-23); CARBON DIOXIDE LEVEL 26 MMOL/L (20-31); CHLORIDE LEVEL 105 MMOL/L (98-107); CREATININE FOR GFR 0.67 MG/DL (0.55-1.30); GLOMERULAR FILTRATION RATE > 60.0 (>58); GLUCOSE, FASTING 82 MG/DL (60-100); POTASSIUM SERUM 4.4 MMOL/L (3.5-5.1); SODIUM LEVEL 140 MMOL/L (136-145)
== END ==
LOC: M WUC 12:00
PROVIDERS: ATTEND Family Medicine
DX: R79.9 Abnormal finding of blood chemistry, unspecified (principal)

== ENCOUNTER → 2023-03-21 | Outpatient (CLI) | payer BC | LOC: M WHC 07:32 | PROVIDERS: ATTEND Family Medicine | DX: Z15.01 Genetic susceptibility to malignant neoplasm of breast (principal); Z85.850 Personal history of malignant neoplasm of thyroid | CPT/HCPCS: 77066; G0279 ==

== ENCOUNTER → 2023-04-30 | Outpatient (CLI) | payer BC ==
[2023-04-30 09:49] LABS: BLOOD UREA NITROGEN 19 MG/DL (9-23); CALCIUM LEVEL 9.2 MG/DL (8.5-10.1); CARBON DIOXIDE LEVEL 26 MMOL/L (20-31); CHLORIDE LEVEL 107 MMOL/L (98-107); CREATININE FOR GFR 0.66 MG/DL (0.55-1.30); GLOMERULAR FILTRATION RATE > 60.0 (>58); GLUCOSE, FASTING 109 MG/DL (60-100); SODIUM LEVEL 139 MMOL/L (136-145)
== END ==
LOC: M LAB 08:29
PROVIDERS: ATTEND Student in an Organized Health Care Education/Training Program
DX: E04.1 Nontoxic single thyroid nodule (principal)

== ENCOUNTER → 2023-05-25 | Outpatient (CLI) | payer BC ==
[~2023-05-25] MED LIST changes: -CEFD300C41 PO; +CEFD300C42 PO
[2023-05-25 17:42] LABS: FOLLICLE STIMULATING HORMONE 22.4 mIU/ML; LUTEINIZING HORMONE 20.3 mIU/ML
[2023-05-25 17:43] LABS: ESTRADIOL 52.5 PG/ML
[2023-05-25 17:46] LABS: PROGESTERONE 0.29 NG/ML
[2023-05-28 12:07] LABS: TESTOSTERONE FREE (DIRECT) 0.9 pg/mL (0.0-4.2)
== END ==
LOC: M WUC 14:23
PROVIDERS: ATTEND Obstetrics & Gynecology
DX: N95.1 Menopausal and female climacteric states (principal); E34.9 Endocrine disorder, unspecified; F52.0 Hypoactive sexual desire disorder

== ENCOUNTER → 2023-06-17 | Outpatient (REF) | payer BC | LOC: M LAB REF 09:11 | PROVIDERS: ATTEND Physician Assistant | DX: U07.1 COVID-19 (principal) ==

== ENCOUNTER → 2023-07-04 | Outpatient (CLI) | payer BC ==
[~2023-07-04] MED LIST changes: +CEFD1CAP9 PO; -CEFD300C42 PO
[2023-07-04 17:22] LABS: CALCIUM LEVEL 9.4 MG/DL (8.5-10.1)
[2023-07-04 17:26] LABS: THYROID STIMULATING HORMONE 1.309 uIU/ML (0.55-4.78)
[2023-07-04 17:29] LABS: THYROGLOBULIN ANTIBODY < 15.0 U/ML (<60.0)
== END ==
LOC: M LAB 16:06
PROVIDERS: ATTEND Student in an Organized Health Care Education/Training Program
DX: E89.0 Postprocedural hypothyroidism (principal)

== ENCOUNTER → 2023-08-02 | Outpatient (CLI) | payer BC ==
[2023-08-02 18:23] LABS: FREE T4 1.19 NG/DL (0.89-1.76); TOTAL T3 89.1 NG/DL (60.0-181.0)
[2023-08-02 18:24] LABS: THYROID STIMULATING HORMONE 4.009 uIU/ML (0.55-4.78)
== END ==
LOC: M LAB 17:18
PROVIDERS: ATTEND Family Medicine
DX: E03.9 Hypothyroidism, unspecified (principal)

== ENCOUNTER → 2023-09-26 | Outpatient (CLI) | payer BC ==
[2023-09-26 18:46] LABS: FREE T4 1.36 NG/DL (0.89-1.76)
[2023-09-26 18:47] LABS: FREE T3 2.9 PG/ML (2.3-4.2); THYROID STIMULATING HORMONE 1.817 uIU/ML (0.55-4.78)
== END ==
LOC: M LAB 17:28
PROVIDERS: ATTEND Family Medicine
DX: E03.9 Hypothyroidism, unspecified (principal)

== ENCOUNTER → 2023-12-29 | Outpatient (CLI) | payer BC ==
[2023-12-29 10:17] LABS: FREE T4 1.37 NG/DL (0.89-1.76); THYROID STIMULATING HORMONE 1.267 uIU/ML (0.55-4.78)
[2023-12-29 10:34] LABS: FREE T3 2.6 PG/ML (2.3-4.2)
== END ==
LOC: M LAB 08:44
PROVIDERS: ATTEND Nurse Practitioner Family
DX: C73 Malignant neoplasm of thyroid gland (principal)

== ENCOUNTER → 2024-03-25 | Outpatient (CLI) | payer BC | LOC: M WHC 16:29 | PROVIDERS: ATTEND Obstetrics & Gynecology | DX: Z12.31 Encounter for screening mammogram for malignant neoplasm of breast (principal) ==

== ENCOUNTER → 2024-05-13 | Outpatient (REF) | payer BC | LOC: M LAB REF 11:19 | PROVIDERS: ATTEND Nurse Practitioner Family | DX: J02.9 Acute pharyngitis, unspecified (principal) ==

== ENCOUNTER → 2024-06-03 | Outpatient (CLI) | payer BC | LOC: M WHC 15:43 | PROVIDERS: ATTEND Student in an Organized Health Care Education/Training Program | DX: C73 Malignant neoplasm of thyroid gland (principal) ==

== ENCOUNTER → 2024-07-24 | Outpatient (CLI) | payer BC ==
[2024-07-24 09:57] LABS: HEMOGLOBIN A1c 5.2 % (4.0-6.0)
== END ==
LOC: M LAB 08:23
PROVIDERS: ATTEND Family Medicine
DX: K90.9 Intestinal malabsorption, unspecified (principal)

== ENCOUNTER → 2024-08-14 | Outpatient (CLI) | payer BC | LOC: M PLALAB 17:00 → M LAB 17:00 | PROVIDERS: ATTEND Student in an Organized Health Care Education/Training Program | DX: E89.0 Postprocedural hypothyroidism (principal) ==

== ENCOUNTER → 2024-08-20 | Outpatient (CLI) | payer BC ==
[2024-08-20 15:34] LABS: ESTRADIOL 59.8 PG/ML
[2024-08-20 15:35] LABS: FOLLICLE STIMULATING HORMONE 16.5 mIU/ML
[2024-08-20 15:38] LABS: PROGESTERONE < 0.21 NG/ML
[2024-08-21 07:00] LABS: LUTEINIZING HORMONE 15.2 mIU/ML
== END ==
LOC: M LAB 13:57
PROVIDERS: ATTEND Obstetrics & Gynecology
DX: N95.1 Menopausal and female climacteric states (principal); E34.9 Endocrine disorder, unspecified; F52.0 Hypoactive sexual desire disorder

== ENCOUNTER → 2024-08-25 | Outpatient (CLI) | payer BC | LOC: M WHC 15:01 | PROVIDERS: ATTEND Family Medicine | DX: R10.2 Pelvic and perineal pain (principal); Z90.710 Acquired absence of both cervix and uterus; Z90.722 Acquired absence of ovaries, bilateral ==

== ENCOUNTER → 2024-09-18 | Outpatient (CLI) | payer BC ==
[2024-09-18 11:35] LABS: HEMATOCRIT 47.7 % (36.0-47.0); HEMOGLOBIN 15.8 g/dl (12.0-15.5); MEAN CORPUSCULAR HEMOGLOBIN 29.3 pg (27.0-33.0); MEAN CORPUSCULAR HGB CONC 33.1 g/dl (32.0-36.5); MEAN CORPUSCULAR VOLUME 88.5 fl (80.0-96.0); PLATELET COUNT, AUTOMATED 315 10^3/uL (150-450); RED BLOOD COUNT 5.39 10^6/uL (4.00-5.40); WHITE BLOOD COUNT 9.6 10^3/uL (4.0-10.0)
[2024-09-18 12:08] LABS: ALBUMIN 4.3 G/DL (3.2-5.2); ALKALINE PHOSPHATASE 64 U/L (35-104); ALT/SGPT 32 U/L (7.0-40); AST/SGOT 22 U/L (<34); BILIRUBIN,TOTAL 0.4 MG/DL (0.3-1.2); BLOOD UREA NITROGEN 23 MG/DL (9-23); CALCIUM LEVEL 9.3 MG/DL (8.5-10.1); CARBON DIOXIDE LEVEL 29 MMOL/L (20-31); CHLORIDE LEVEL 100 MMOL/L (98-107); CREATININE FOR GFR 0.75 MG/DL (0.55-1.30); GLOMERULAR FILTRATION RATE > 60.0 (>58); GLUCOSE, FASTING 94 MG/DL (60-100); POTASSIUM SERUM 4.1 MMOL/L (3.5-5.1); SODIUM LEVEL 139 MMOL/L (136-145)
== END ==
LOC: M WUC 09:58
PROVIDERS: ATTEND Student in an Organized Health Care Education/Training Program
DX: R42 Dizziness and giddiness (principal)

== ENCOUNTER → 2024-09-26 | Outpatient (CLI) | payer BC | LOC: M LAB 16:45 | PROVIDERS: ATTEND Student in an Organized Health Care Education/Training Program | DX: E89.0 Postprocedural hypothyroidism (principal) ==

== ENCOUNTER → 2024-11-06 | Outpatient (CLI) | payer BC ==
[2024-11-06 11:13] LABS: BASO # 0.1 10^3/uL (0.0-0.2); BASO % 0.4 % (0.0-1.0); EOS # 0.1 10^3/uL (0.0-0.5); EOS % 0.6 % (0.0-3.0); HEMATOCRIT 44.5 % (36.0-47.0); HEMOGLOBIN 14.4 g/dl (12.0-15.5); LYMPH # 1.4 10^3/uL (1.5-5.0); LYMPH % 11.8 % (24.0-44.0); MEAN CORPUSCULAR HEMOGLOBIN 29.6 pg (27.0-33.0); MEAN CORPUSCULAR HGB CONC 32.4 g/dl (32.0-36.5); MEAN CORPUSCULAR VOLUME 91.6 fl (80.0-96.0); MONO # 0.6 10^3/uL (0.0-0.8); MONO % 4.8 % (2.0-8.0); NEUTROPHILS # 9.6 10^3/uL (1.5-8.5); PLATELET COUNT, AUTOMATED 262 10^3/uL (150-450); RED BLOOD COUNT 4.86 10^6/uL (4.00-5.40); WHITE BLOOD COUNT 11.7 10^3/uL (4.0-10.0)
[2024-11-06 11:38] LABS: HEMOGLOBIN A1c 5.2 % (4.0-6.0)
[2024-11-06 11:43] LABS: IRON (FE) 91 UG/DL (50-170)
[2024-11-06 11:44] LABS: ALBUMIN 3.7 G/DL (3.2-5.2); ALKALINE PHOSPHATASE 55 U/L (35-104); ALT/SGPT 19 U/L (7.0-40); AST/SGOT 14 U/L (<34); BILIRUBIN,TOTAL 0.6 MG/DL (0.3-1.2); BLOOD UREA NITROGEN 16 MG/DL (9-23); CARBON DIOXIDE LEVEL 29 MMOL/L (20-31); CHLORIDE LEVEL 104 MMOL/L (98-107); CHOLESTEROL LEVEL 133 MG/DL (<200); CHOLESTEROL RISK RATIO 2.39 (<5); CREATININE FOR GFR 0.59 MG/DL (0.55-1.30); FERRITIN 29.8 NG/ML (7.3-270.7); FOLATE 15.76 NG/ML (>5.4); GLOMERULAR FILTRATION RATE > 90.0 (>58); GLUCOSE, FASTING 84 MG/DL (60-100); HDL CHOLESTEROL 55.5 MG/DL (>40); LDL CHOLESTEROL 50.5 MG/DL (<100); NON-HDL-C 77.5 MG/DL; POTASSIUM SERUM 3.9 MMOL/L (3.5-5.1); SODIUM LEVEL 142 MMOL/L (136-145); THYROGLOBULIN ANTIBODY < 15.0 U/ML (<60.0); THYROID STIMULATING HORMONE 1.728 uIU/ML (0.55-4.78); TOTAL PROTEIN 6.8 G/DL (5.7-8.2); TOTAL T3 78.2 NG/DL (60.0-181.0); TRIGLYCERIDES LEVEL 135 MG/DL (<150)
[2024-11-06 11:45] LABS: FREE T4 1.46 NG/DL (0.89-1.76)
[2024-11-06 11:46] LABS: VITAMIN B12 LEVEL 1024 PG/ML (211-911)
== END ==
LOC: M LAB 10:12
PROVIDERS: ATTEND Family Medicine
DX: K90.9 Intestinal malabsorption, unspecified (principal)

== ENCOUNTER → 2024-11-11 | Outpatient (CLI) | payer BC | LOC: M WHC 16:05 | PROVIDERS: ATTEND Family Medicine | DX: M81.0 Age-related osteoporosis without current pathological fracture (principal) ==

== ENCOUNTER → 2025-02-04 | Outpatient (CLI) | payer BC ==
[~2025-02-04] MED LIST changes: +LEVO200T4; +SPIR-10; +TIRZ5PEN3
== END ==
LOC: M LAB 07:54
PROVIDERS: ATTEND Student in an Organized Health Care Education/Training Program
DX: E89.0 Postprocedural hypothyroidism (principal); C73 Malignant neoplasm of thyroid gland

== ENCOUNTER → 2025-02-04 | Outpatient (CLI) | payer BC ==
[2025-02-04 13:00] LABS: FREE T4 1.9 NG/DL (0.89-1.76)
[2025-02-04 13:05] LABS: TOTAL T3 107.5 NG/DL (60.0-181.0)
== END ==
LOC: M LAB 07:50
PROVIDERS: ATTEND Family Medicine
DX: Z85.850 Personal history of malignant neoplasm of thyroid (principal)

== ENCOUNTER → 2025-02-12 | Outpatient (CLI) | payer BC ==
[2025-02-12 12:19] LABS: BASO # 0.1 10^3/uL (0.0-0.2); BASO % 0.5 % (0.0-1.0); EOS # 0.2 10^3/uL (0.0-0.5); EOS % 2.3 % (0.0-3.0); LYMPH # 1.4 10^3/uL (1.5-5.0); LYMPH % 14.4 % (24.0-44.0); MONO # 0.8 10^3/uL (0.0-0.8); MONO % 8.4 % (2.0-8.0); NEUTROPHILS # 7.0 10^3/uL (1.5-8.5); NEUTROPHILS % 73.9 % (36.0-66.0); PLATELET COUNT, AUTOMATED 208 10^3/uL (150-450)
[2025-02-12 12:41] LABS: ALT/SGPT 32 U/L (7.0-40); AST/SGOT 26 U/L (<34); CALCIUM LEVEL 9.4 MG/DL (8.5-10.1); CARBON DIOXIDE LEVEL 26 MMOL/L (20-31); CHLORIDE LEVEL 102 MMOL/L (98-107); CREATININE FOR GFR 0.66 MG/DL (0.55-1.30); GLOMERULAR FILTRATION RATE > 90.0 (>58); POTASSIUM SERUM 4.0 MMOL/L (3.5-5.1); SODIUM LEVEL 141 MMOL/L (136-145)
== END ==
LOC: M WUC 09:16
PROVIDERS: ATTEND Nurse Practitioner Family
DX: R10.811 Right upper quadrant abdominal tenderness (principal)

== ENCOUNTER → 2025-02-12 | Outpatient (CLI) | payer BC | LOC: M RAD 10:29 | PROVIDERS: ATTEND Family Medicine | DX: Q61.9 Cystic kidney disease, unspecified (principal) ==

== ENCOUNTER → 2025-03-02 | Outpatient (CLI) | payer BC | LOC: M RAD 11:21 | PROVIDERS: ATTEND Student in an Organized Health Care Education/Training Program | DX: E89.0 Postprocedural hypothyroidism (principal); R93.89 Abnormal findings on diagnostic imaging of other specified body structures ==

== ENCOUNTER → 2025-03-05 | Outpatient (CLI) | payer BC ==
[2025-03-05 07:07] LABS: BASO # 0.1 10^3/uL (0.0-0.2); BASO % 0.6 % (0.0-1.0); EOS # 0.2 10^3/uL (0.0-0.5); EOS % 2.1 % (0.0-3.0); LYMPH # 1.5 10^3/uL (1.5-5.0); LYMPH % 18.3 % (24.0-44.0); MONO # 0.6 10^3/uL (0.0-0.8); MONO % 7.4 % (2.0-8.0); NEUTROPHILS # 5.6 10^3/uL (1.5-8.5); NEUTROPHILS % 71.0 % (36.0-66.0); PLATELET COUNT, AUTOMATED 249 10^3/uL (150-450)
[2025-03-05 07:22] LABS: ALT/SGPT 16 U/L (7.0-40); AST/SGOT 17 U/L (<34); CALCIUM LEVEL 9.4 MG/DL (8.5-10.1); CARBON DIOXIDE LEVEL 32 MMOL/L (20-31); CHLORIDE LEVEL 104 MMOL/L (98-107); CHOLESTEROL LEVEL 126 MG/DL (<200); CHOLESTEROL RISK RATIO 2.75 (<5); CREATININE FOR GFR 0.69 MG/DL (0.55-1.30); GLOMERULAR FILTRATION RATE > 90.0 (>58); IRON (FE) 47 UG/DL (50-170); LDL CHOLESTEROL 59.1 MG/DL (<100); NON-HDL-C 80.3 MG/DL; POTASSIUM SERUM 3.9 MMOL/L (3.5-5.1); SODIUM LEVEL 143 MMOL/L (136-145); TRIGLYCERIDES LEVEL 106 MG/DL (<150)
[2025-03-05 07:23] LABS: FREE T4 1.66 NG/DL (0.89-1.76)
[2025-03-05 07:24] LABS: VITAMIN B12 LEVEL 501 PG/ML (211-911)
[2025-03-05 07:26] LABS: TOTAL T3 105.5 NG/DL (60.0-181.0)
[2025-03-05 07:27] LABS: THYROGLOBULIN ANTIBODY 27.0 U/ML (<60.0)
[2025-03-05 07:35] LABS: ESTIMATED AVERAGE GLUCOSE 97.0 MG/DL (60-110)
[2025-03-10 17:13] LABS: VITAMIN B2 (RIBOFLAVIN) 19.0 nmol/L (6.2-39.0)
[2025-03-11 02:42] LABS: VITAMIN B1 LEVEL WHOLE BLOOD 166.0 nmol/L (78-185)
== END ==
LOC: M LAB 06:15
PROVIDERS: ATTEND Family Medicine
DX: K90.9 Intestinal malabsorption, unspecified (principal); R73.03 Prediabetes; Z79.899 Other long term (current) drug therapy; D50.9 Iron deficiency anemia, unspecified; E78.00 Pure hypercholesterolemia, unspecified; E56.0 Deficiency of vitamin E; E03.9 Hypothyroidism, unspecified

== ENCOUNTER → 2025-04-06 | Outpatient (CLI) | payer BC ==
[~2025-04-06] MED LIST changes: +DIAZ5TAB PO; +ERGO500029; +LEVO150T7 PO; +PROP20TA72 PO; +TIRZ7.5P3; +TORS10TA3
[2025-04-06 16:22] LABS: FREE T4 2.05 NG/DL (0.89-1.76)
[2025-04-08 15:32] LABS: THRYOGLOBULIN ANTIBODIES (ATA) < 1 IU/mL (< or = 1); THYROGLOBULIN QUANTITATIVE 1.7 ng/mL (2.8-40.9)
== END ==
LOC: M ONCR 15:07
PROVIDERS: ATTEND General Practice
DX: C73 Malignant neoplasm of thyroid gland (principal); Z90.89 Acquired absence of other organs; Z98.84 Bariatric surgery status; Z90.49 Acquired absence of other specified parts of digestive tract; Z79.85 Long-term (current) use of injectable non-insulin antidiabetic drugs; Z79.899 Other long term (current) drug therapy; Z87.891 Personal history of nicotine dependence; Z90.710 Acquired absence of both cervix and uterus; Z91.040 Latex allergy status; Z91.012 Allergy to eggs
CPT/HCPCS: 36415; 84432; 84439; 84443; 86800; G0463

== ENCOUNTER → 2025-04-21 | Outpatient (CLI) | payer BC ==
[~2025-04-21] MED LIST changes: +LIDOCAINE 1% MDV 20 ML VIAL SC STA
[2025-04-21 07:35] VITALS: BP 147/80; TEMP 98.2; O2SAT 100
== END ==
LOC: M IRPRO 11:04
PROVIDERS: ATTEND General Practice
DX: Z85.850 Personal history of malignant neoplasm of thyroid (principal)

== ENCOUNTER → 2025-04-21 | Outpatient (CLI) | payer BC ==
[~2025-04-21] MED LIST changes: -LIDOCAINE 1% MDV 20 ML VIAL SC STA
== END ==
LOC: M IRPRO 07:17
PROVIDERS: ATTEND General Practice
DX: Z85.850 Personal history of malignant neoplasm of thyroid (principal)

== ENCOUNTER → 2025-05-04 | Outpatient (CLI) | payer BC | LOC: M WHC 08:10 | PROVIDERS: ATTEND Obstetrics & Gynecology | DX: Z12.31 Encounter for screening mammogram for malignant neoplasm of breast (principal) ==

== ENCOUNTER → 2025-05-19 | Outpatient (CLI) | payer BC ==
[~2025-05-19] MED LIST changes: +BUPR-363 PO; -BUPR75TA5 PO
[2025-05-19 17:06] LABS: FREE T4 1.45 NG/DL (0.89-1.76)
== END ==
LOC: M ONCR 15:07
PROVIDERS: ATTEND General Practice
DX: C73 Malignant neoplasm of thyroid gland (principal); Z90.89 Acquired absence of other organs; Z87.891 Personal history of nicotine dependence; Z91.040 Latex allergy status; Z91.0120 Allergy to eggs, unspecified; Z79.899 Other long term (current) drug therapy
CPT/HCPCS: 84439; 84443; G0463

== ENCOUNTER → 2025-06-10 | Outpatient (CLI) | payer BC ==
[2025-06-10] MEDS: [UNRECOGNIZED DRUG - OTHER] IM SCH (08:40)
[2025-06-10 09:44] LABS: FREE T4 1.49 NG/DL (0.89-1.76)
[2025-06-12 16:20] LABS: THRYOGLOBULIN ANTIBODIES (ATA) < 1 IU/mL (< or = 1); THYROGLOBULIN QUANTITATIVE 4.7 ng/mL (2.8-40.9)
== END ==
LOC: M ONCR 08:15
PROVIDERS: ATTEND General Practice
DX: C73 Malignant neoplasm of thyroid gland (principal)
CPT/HCPCS: 36415; 84432; 84439; 84443; 86800; 96402; G0463; J3240

== ENCOUNTER → 2025-06-11 | Outpatient (CLI) | payer BC ==
[2025-06-11] MEDS: [UNRECOGNIZED DRUG - OTHER] IM ONE (08:44)
== END ==
LOC: M ONCR 08:12
PROVIDERS: ATTEND General Practice
DX: C73 Malignant neoplasm of thyroid gland (principal)
CPT/HCPCS: 96402; G0463; J3240

== ENCOUNTER → 2025-06-12 | Outpatient (CLI) | payer BC ==
[~2025-06-12] MED LIST changes: +LEVO175T2 PO
[2025-06-16 11:17] LABS: THRYOGLOBULIN ANTIBODIES (ATA) < 1 IU/mL (< or = 1); THYROGLOBULIN QUANTITATIVE 11.2 ng/mL (2.8-40.9)
== END ==
LOC: M ONCR 07:56
PROVIDERS: ATTEND General Practice
DX: C73 Malignant neoplasm of thyroid gland (principal)
CPT/HCPCS: 36415; 77300; 79005; 84432; 86800; A9517

== ENCOUNTER → 2025-07-13 | Outpatient (CLI) | payer BC ==
[2025-07-13 10:04] LABS: FREE T4 1.31 NG/DL (0.89-1.76)
[2025-07-15 07:47] LABS: THRYOGLOBULIN ANTIBODIES (ATA) < 1 IU/mL (< or = 1); THYROGLOBULIN QUANTITATIVE 2.6 ng/mL (2.8-40.9)
== END ==
LOC: M ONCR 08:54
PROVIDERS: ATTEND General Practice
DX: C73 Malignant neoplasm of thyroid gland (principal); Z90.89 Acquired absence of other organs; Z87.891 Personal history of nicotine dependence; Z91.040 Latex allergy status; Z91.0120 Allergy to eggs, unspecified; Z79.85 Long-term (current) use of injectable non-insulin antidiabetic drugs; Z79.899 Other long term (current) drug therapy
CPT/HCPCS: 36415; 84432; 84439; 84443; 86800; G0463